=== PATIENT | female | born 1955 | race Caucasian/White ===

== ENCOUNTER → 2018-10-20 | Outpatient (CLI) | payer OTHER ==
--- NOTE | 2018-10-20 15:20 | RADIOLOGY REPORT (SQ) ---
EXAM DESCRIPTION: CHEST 2 VIEWS COMPLETED DATE/TIME: 10/20/2018 3:11 pm REASON FOR STUDY: ABNORMAL CBC COMPARISON: None. EXAM PARAMETERS: NUMBER OF VIEWS: two views TECHNIQUE: Digital Frontal and Lateral radiographic views of the chest acquired. RADIATION DOSE: NA LIMITATIONS: none FINDINGS: LUNGS AND PLEURA: No opacities, masses or pneumothorax. No pleural effusion. MEDIASTINUM AND HILAR STRUCTURES: No masses or contour abnormalities. HEART AND VASCULAR STRUCTURES: Heart normal size. No evidence for failure. BONES: No acute findings. HARDWARE: None in the chest. OTHER: No other significant finding. IMPRESSION: NO ACUTE RADIOGRAPHIC FINDING IN THE CHEST. TECHNICAL DOCUMENTATION: JOB ID: [id number] [employer] All Rights Reserved Reading location - IP/workstation name: [email or web address]
--- NOTE | 2018-10-20 20:57 | XCELERA REPORT ---
[address] [address] Transthoracic Echocardiogram Report Name: AFUA NUNEZ Age: 62 yrs Gender: Female : 1955 Patient Status: Outpatient Patient Location: RAD Study Date: 10/20/2018 04:17 PM Height: 65 in Weight: 173 lb BSA: 1.9 m2 Procedure: A complete two-dimensional transthoracic echocardiogram was performed (2D, M-mode, spectral and color flow Doppler). The study was technically adequate with some images being suboptimal in quality. Reason For Study: [facility] Ordering Physician: SHELLEY BLANCAS Performed By: Aleksandra Warren Interpretation Summary LV EF is 45% Left ventricular systolic function is mildly reduced. There is moderate concentric left ventricular hypertrophy. The left ventricle is grossly normal size. Doppler measurements suggest pseudonormalized left ventricular relaxation, which is associated with grade II/IV or mild to moderate diastolic dysfunction There is mild global hypokinesis of the left ventricle. There is lateral wall moderate hypokinesis The right ventricular systolic function is normal. The left atrium is moderately dilated. The right atrium is normal. There is a trace amount of mitral regurgitation There is no mitral valve stenosis. No aortic regurgitation is present. There is no aortic valve stenosis There is a trace or physiologic amount of tricuspid regurgitation Tricuspid regurgitation jet envelope not well defined to measure RV systolic pressure accurately. The aortic root is not well visualized but is probably normal size. The inferior vena cava appeared normal and decreased > 50% with respiration (RAP 5-10 mmHg) Minimal pericardial effusion. MMode/2D Measurements & Calculations IVSd: 1.2 cm LVIDd: 5.8 cm FS: 19.5 % Ao root diam: 3.0 cm LVIDs: 4.6 cm EDV(Teich): 163.7 ml Ao root area: 7.2 cm2 LVPWd: 1.4 cm ESV(Teich): 99.0 ml EF(Teich): 39.5 % Doppler Measurements & Calculations MV E max abbey: MV dec slope: Ao V2 max: LV V1 max P.6 cm/sec 258.8 cm/sec2 151.7 cm/sec 2.2 mmHg MV A max abbey: MV dec time: 0.25 sec Ao max P.2 mmHgLV V1 max: 116.3 cm/sec 73.5 cm/sec MV E/A: 0.56 PA V2 max: PI end-d abbey: TR max abbey: 87.0 cm/sec 95.1 cm/sec 210.2 cm/sec PA max P.0 mmHg TR max P.7 mmHg Left Ventricle The left ventricle is grossly normal size. There is moderate concentric left ventricular hypertrophy. Left ventricular systolic function is mildly reduced. LV EF is 45%. Doppler measurements suggest pseudonormalized left ventricular relaxation, which is associated with grade II/IV or mild to moderate diastolic dysfunction. There is mild global hypokinesis of the left ventricle. There is lateral wall moderate hypokinesis. Right Ventricle The right ventricle is grossly normal size. There is normal right ventricular wall thickness. The right ventricular systolic function is normal. Atria The right atrium is normal. The left atrium is moderately dilated. Interarterial septum not well visualized and not well dopplered. Cannot comment on ASD/PFO presence. Mitral Valve The mitral valve leaflets are sclerotic, but show no functional abnormalities. There is no mitral valve stenosis. There is a trace amount of mitral regurgitation. Aortic Valve The aortic valve is grossly normal. There is no aortic valve stenosis. No aortic regurgitation is present. Tricuspid Valve The tricuspid valve is not well visualized, but is grossly normal. There is no tricuspid stenosis. There is a trace or physiologic amount of tricuspid regurgitation. Tricuspid regurgitation jet envelope not well defined to measure RV systolic pressure accurately. Pulmonic Valve The pulmonic valve is not well visualized. Great Vessels The aortic root is not well visualized but is probably normal size. The inferior vena cava appeared normal and decreased > 50% with respiration (RAP 5-10 mmHg). Effusions Minimal pericardial effusion. : SHELLEY BLANCAS Shyamal
== END ==
LOC: RAD 14:48
PROVIDERS: ATTEND General Practice
DX: R79.9 Abnormal finding of blood chemistry, unspecified (principal)
CPT/HCPCS: 71046; 93306

== ENCOUNTER 2019-03-31 14:42 | Inpatient (IN) | payer OTHER ==
--- NOTE | 2019-03-31 15:19 | ER Document Report ---
ED Medical Screen (RME) - General Chief Complaint: Breathing Difficulty Stated Complaint: SHORTNESS OF BREATH Time Seen by Provider: 03/31/19 15:12 Primary Care Provider: SHELLEY BLANCAS MD [Primary Care Provider] - Follow up as needed Mode of Arrival: Ambulatory Information source: Patient Notes: 63-year-old female presents to ED for complaint of shortness of breath that is severely increased in the last week much worse over the last 2 days and then this morning she states it was so bad she could not even move around. She does have a history of COPD high blood pressure and cholesterol. She has had a heart cath in the left breast lump removed. According to she smokes 10 packs of cigarettes a week. She states she is cutting back and she thought she was under a pack but he states no she smokes a carton of cigarettes a week. She states she does not drink or do any drugs and she lives with her . Patient is severely short of breath her O2 sat is between 87 and 90 sometimes gets up to 92 she is very still. blood pressure is 280/108 manually. I have greeted and performed a rapid initial assessment of this patient. A comprehensive ED assessment and evaluation of the patient, analysis of test results and completion of medical decision making process will be conducted by an additional ED providers. Dictation of this chart was performed using voice recognition software; therefore, there may be some unintended grammatical errors. TRAVEL OUTSIDE OF THE [place] IN LAST 30 DAYS: No - Related Data Allergies/Adverse Reactions: codeine Allergy (Verified 03/31/19 14:51) Sulfa (Sulfonamide Antibiotics) Allergy (Verified 03/31/19 14:51) Physical Exam - Vital signs Vitals: Temp Pulse Resp BP Pulse Ox 98.3 F 68 24 H 257/114 H 92 03/31/19 15:01 03/31/19 15:01 03/31/19 15:01 03/31/19 15:01 03/31/19 15:01 Course - Vital Signs Vital signs: Temp Pulse Resp BP Pulse Ox 98.3 F 68 24 H 280/108 H 91 L 03/31/19 15:01 03/31/19 15:01 03/31/19 15:01 03/31/19 15:04 03/31/19 15:04 Doctor's Discharge - Discharge Referrals: SHELLEY BLANCAS MD [Primary Care Provider] - Follow up as needed
--- NOTE | 2019-03-31 15:49 | ER Document Report ---
ED General - General Chief Complaint: Breathing Difficulty Stated Complaint: SHORTNESS OF BREATH Time Seen by Provider: 03/31/19 15:12 Primary Care Provider: SHELLEY BLANCAS MD [Primary Care Provider] - Follow up as needed Mode of Arrival: Ambulatory Notes: Patient is a 63-year-old female with COPD that presents to the emergency department for chief complaint of shortness of breath and difficulty breathing. Patient states that over the past 4 to 5 days she has been feeling more short of breath, particularly for the past 3 days, she is been having orthopnea, and more difficulty breathing at night, she is had dyspnea on exertion as well. She states that she missed her blood pressure medications this morning, but has been taking them otherwise throughout the week. She does smoke cigarettes on a regular basis, but denies history of heart failure, she reports having a heart cath, that was negative, had no intervention at that time. She states she had an echocardiogram about 3 months ago which she thinks was normal. She denies having any chest pain, fevers, chills, night sweats, cough, nausea, vomiting or abdominal pain at this time. Past Medical History: COPD, hypertension Past Surgical History: Left heart catheterization, lumpectomy Social History: Admits to smoking cigarettes, denies alcohol or drug use. Family History: Reviewed and noncontributory for presenting illness Allergies: Reviewed, see documented allergy list. REVIEW OF SYSTEMS: Other than noted above, the 12 point review of systems was reviewed with the patient and were negative, all pertinent findings are included in the HPI. PHYSICAL EXAMINATION: Vital signs reviewed, nursing noted reviewed. GENERAL: Patient has mild increased work of breathing, but in no immediate distress at this time. HEAD: Atraumatic, normocephalic. EYES: Eyes appear normal, extraocular movements intact, sclera anicteric, conjunctiva are normal. ENT: nares patent, oropharynx clear without exudates. Moist mucous membranes. NECK: Normal range of motion, supple without lymphadenopathy LUNGS: Diffuse wheezing noted throughout all lung leone, and crackles noted at the bases bilaterally. Increased work of breathing. HEART: Regular rate and rhythm without murmurs ABDOMEN: Soft, nontender, normoactive bowel sounds. No rebound, guarding, or rigidity. No masses appreciated. EXTREMITIES: Nontender, good range of motion, 1+ pitting edema to the proximal tibias bilaterally. NEUROLOGICAL: No focal neurological deficits. Moves all extremities spontaneously Motor and sensory grossly intact on exam. PSYCH: Normal mood, normal affect. SKIN: Warm, Dry, normal turgor, no rashes or lesions noted on exposed skin TRAVEL OUTSIDE OF THE [place] IN LAST 30 DAYS: No - Related Data Allergies/Adverse Reactions: codeine Allergy (Verified 03/31/19 14:51) Sulfa (Sulfonamide Antibiotics) Allergy (Verified 03/31/19 14:51) Past Medical History - General Information source: Patient - Social History Smoking Status: Current Every Day Smoker Family History: Reviewed & Not Pertinent Patient has suicidal ideation: No Patient has homicidal ideation: No Renal/ Medical History: Denies: Hx Peritoneal Dialysis Physical Exam - Vital signs Vitals: Temp Pulse Resp BP Pulse Ox 98.3 F 68 24 H 257/114 H 92 03/31/19 15:01 03/31/19 15:01 03/31/19 15:01 03/31/19 15:01 03/31/19 15:01 Course - Re-evaluation Re-evalutation: Patient seen and examined vital signs reviewed. Laboratory data and imaging were ordered as appropriate for the patient's presenting symptoms and complaint, with consideration of any critical or life threatening conditions that may be associated with their obtained history and exam as noted above. Patient was treated with sublingual nitroglycerin, and started on nitro infusion, and Lasix 20 mg IV, patient additionally was given DuoNeb breathing treatments, IV Solu-Medrol, and IV magnesium. Results were reviewed when available and demonstrated elevated BNP, EKG was consistent with LVH, likely from long-standing hypertension, and also noted on chest x-ray, with bilateral pulmonary edema, and effusions. The patient was re-evaluated and was improved after breathing treatments, and blood pressure was starting to come down slowly after being started on nitroglycerin. Evaluation was most consistent with acute heart failure, pulmonary edema, and acute exacerbation of COPD Results were discussed with the patient at this point after careful considera tion I feel that that patient should be admitted to the hospital. This was discussed with the patient that it is in the best interest for their care to be admitted for further evaluation and management. Patient agreed with this plan of care. A call was placed to the admitting provider Javed Keene CNP who graciously accepted the patient onto their service. *Note is created using voice recognition software and may contain spelling, syntax or grammatical errors. Laboratory 03/31/19 03/31/19 03/31/19 15:27 15:27 15:27 WBC 10.6 H RBC 4.54 Hgb 13.0 Hct 39.4 MCV 87 MCH 28.6 MCHC 33.0 RDW 16.0 H Plt Count 272 Seg Neutrophils % 83.7 H Lymphocytes % 8.9 L Monocytes % 5.1 Eosinophils % 1.8 Basophils % 0.5 Absolute Neutrophils 8.8 H Absolute Lymphocytes 0.9 Absolute Monocytes 0.5 Absolute Eosinophils 0.2 Absolute Basophils 0.1 Sodium 138.0 Potassium 3.7 Chloride 99 Carbon Dioxide 30 Anion Gap 9 BUN 34 H Creatinine 1.94 H Est GFR ( Amer) 31 L Est GFR (Non-Af Amer) 26 L Glucose 101 Calcium 8.8 Total Bilirubin 0.6 Direct Bilirubin 0.4 Neonat Total Bilirubin Not Reportable Neonat Direct Bilirubin Not Reportable Neonat Indirect Bili Not Reportable AST 35 ALT 47 Alkaline Phosphatase 85 CK-MB (CK-2) Troponin I 0.022 NT-Pro-B Natriuret Pep Total Protein 7.4 Albumin 4.2 Lipase 64.0 03/31/19 15:27 WBC RBC Hgb Hct MCV MCH MCHC RDW Plt Count Seg Neutrophils % Lymphocytes % Monocytes % Eosinophils % Basophils % Absolute Neutrophils Absolute Lymphocytes Absolute Monocytes Absolute Eosinophils Absolute Basophils Sodium Potassium Chloride Carbon Dioxide Anion Gap BUN Creatinine Est GFR ( Amer) Est GFR (Non-Af Amer) Glucose Calcium Total Bilirubin Direct Bilirubin Neonat Total Bilirubin Neonat Direct Bilirubin Neonat Indirect Bili AST ALT Alkaline Phosphatase CK-MB (CK-2) 4.18 Troponin I NT-Pro-B Natriuret Pep 5150 H Total Protein Albumin Lipase Chest X-Ray 03/31/19 15:14 IMPRESSION: Increased interstitial prominence and bilateral pleural effusions. Small areas of basilar subsegmental atelectasis. - Vital Signs Vital signs: Temp Pulse Resp BP Pulse Ox 98.3 F 68 24 H 280/108 H 91 L 03/31/19 15:01 03/31/19 15:01 03/31/19 15:01 03/31/19 15:04 03/31/19 15:04 - Laboratory Result Diagrams: 03/31/19 15:27 03/31/19 15:27 Laboratory results interpreted by me: 03/31/19 03/31/19 03/31/19 15:27 15:27 15:27 WBC 10.6 H RDW 16.0 H Seg Neutrophils % 83.7 H Lymphocytes % 8.9 L Absolute Neutrophils 8.8 H BUN 34 H Creatinine 1.94 H Est GFR ( Amer) 31 L Est GFR (Non-Af Amer) 26 L NT-Pro-B Natriuret Pep 5150 H Critical Care Note - Critical Care Note Total time excluding time spent on procedures (mins): 36 Comments: Critical care time 36 minutes exclusive from separate billable procedures for a patient requiring complex medical decision making, and high potential for clinical deterioration. In a patient with acute heart failure, requiring IV nitroglycerin, and acute management and frequent re-evaluations. Time spent obtaining history from patient or surrogate, discussions with consultants, development of treatment plan with patient or surrogate, evaluation of patient's response to treatment, examination of patient, ordering and performing treatm ents and interventions, ordering and review of laboratory studies, re-evaluation of patient's condition, ordering and review of radiographic studies and review of old charts Discharge - Discharge Clinical Impression: Acute exacerbation of chronic obstructive pulmonary disease (COPD), Hypertensive emergency Acute CHF Qualifiers: Heart failure type: systolic Qualified Code(s): I50.21 - Acute systolic (congestive) heart failure Condition: Stable Disposition: ADMITTED INPATIENT Admitting Provider: Robyn (Hospitalist) - Javed Keene HEARING THERAPIST Unit Admitted: IMCU Referrals: SHELLEY BLANCAS MD [Primary Care Provider] - Follow up as needed
[2019-03-31] MEDS ORDERED: IPRATROPIUM/ALBUTEROL 0.5-2.5 MG/3 ML AMPUL NEB ONE (16:04)
[2019-03-31 16:05] LABS: ABSOLUTE BASOPHILS # (AUTO) 0.1 10^3/uL (0.0-0.2); ABSOLUTE EOSINOPHILS # (AUTO) 0.2 10^3/uL (0.0-0.6); ABSOLUTE LYMPHOCYTES (AUTO) 0.9 10^3/uL (0.5-4.7); ABSOLUTE MONOCYTES (AUTO) 0.5 10^3/uL (0.1-1.4); ABSOLUTE NEUT (AUTO) 8.8 10^3/uL (1.7-8.2); BASOPHILS % (AUTO) 0.5 % (0-2); EOSINOPHILS % (AUTO) 1.8 % (0-6); HEMATOCRIT 39.4 % (36.0-47.0); LYMPHOCYTES % (AUTO) 8.9 % (13-45); MEAN CORPUSCULAR HEMOGLOBIN 28.6 pg (27.0-33.4); MEAN CORPUSCULAR VOLUME 87 fl (80-97); MONOCYTES % (AUTO) 5.1 % (3-13); PLATELET COUNT 272 10^3/uL (150-450); RED BLOOD COUNT 4.54 10^6/uL (3.72-5.28); SEGMENTED NEUTROPHILS % (AUTO) 83.7 % (42-78); TOTAL CELLS COUNTED % (AUTO) 100 %; WHITE BLOOD COUNT 10.6 10^3/uL (4.0-10.5)
--- NOTE | 2019-03-31 16:20 | RADIOLOGY REPORT (SQ) ---
EXAM DESCRIPTION: CHEST 2 VIEWS COMPLETED DATE/TIME: 03/31/2019 4:09 pm REASON FOR STUDY: very short of breath sat ra 87 COMPARISON: 10/20/2018 TECHNIQUE: Single frontal radiographic view of the chest acquired. NUMBER OF VIEWS: One view. LIMITATIONS: None. FINDINGS: LUNGS AND PLEURA: No pneumothorax. Increased interstitial prominence and bilateral pleura l effusions. Small areas of basilar subsegmental atelectasis. MEDIASTINUM AND HILAR STRUCTURES: Stable. HEART AND VASCULAR STRUCTURES: Stable. BONES: No acute findings. HARDWARE: None in the chest. OTHER: No other significant finding. IMPRESSION: Increased interstitial prominence and bilateral pleural effusions. Small areas of basila r subsegmental atelectasis. TECHNICAL DOCUMENTATION: JOB ID: [id number] [place]-[id number] 2010 [employer]- All Rights Reserved Reading location - IP/workstation name: [email or web address]
[2019-03-31 16:28] LABS: ALBUMIN 4.2 g/dL (3.5-5.0); ALKALINE PHOSPHATASE 85 U/L (38-126); ANION GAP 9 (5-19); ASPARTATE AMINO TRANSFERASE 35 U/L (14-36); BILIRUBIN,DIRECT 0.4 mg/dL (0.0-0.4); BILIRUBIN,TOTAL 0.6 mg/dL (0.2-1.3); BLOOD UREA NITROGEN 34 mg/dL (7-20); CALCIUM 8.8 mg/dL (8.4-10.2); CARBON DIOXIDE 30 mmol/L (22-30); CHLORIDE 99 mmol/L (98-107); GLUCOSE 101 mg/dL (75-110); POTASSIUM 3.7 mmol/L (3.6-5.0); TOTAL PROTEIN 7.4 g/dL (6.3-8.2)
[2019-03-31] MEDS ORDERED: NITROGLYCERIN/D5W 50 MG/250 ML RTUINJ IV PRN (16:38)
[2019-03-31] MEDS ORDERED: NITROGLYCERIN 0.4 MG/TAB 25 TAB/BOTTLE SL STA (16:38)
[2019-03-31 16:43] LABS: CREATINE KINASE MB 4.18 ng/mL (<4.55)
[2019-03-31] MEDS ORDERED: FUROSEMIDE INJ/PF 20 MG/2 ML SDV IV ONE (16:47)
[2019-03-31] MEDS ORDERED: MAGNESIUM SULFATE/D5W 1 GM/100 ML RTUPB IV ONE (17:20)
[2019-03-31] MEDS ORDERED: METHYLPREDNISOLONE INJ 125 MG/2 ML SDV IV ONE (17:20)
[2019-03-31] MEDS ORDERED: FUROSEMIDE INJ/PF 40 MG/4 ML SDV IV ONE (17:35)
[2019-03-31] MEDS ORDERED: ONDANSETRON HCL INJ/PF 4 MG/2 ML SDV IV PRN (17:45)
[2019-03-31] MEDS ORDERED: OXYCODONE-ACETAMINOPHEN 5-325 MG TABLET PO PRN (17:45)
--- NOTE | 2019-03-31 17:45 | Progress Note Acknowledgement ---
Progress Note Acknowledgement Progess Note Acknowledgement: I, the undersigned member of the medical staff with appropriate privileges and with supervisory authority over [Javed Keene], a dependent practice allied health professional, acknowledge that I have reviewed the progress notes entered on this patient, and in my professional judgment believe that the assessment made and/or any care evidenced was appropriate
--- NOTE | 2019-03-31 17:49 | EKG REPORT ---
SEVERITY:- ABNORMAL ECG - SINUS RHYTHM ATRIAL PREMATURE COMPLEX LEFT ATRIAL ABNORMALITY LVH WITH SECONDARY REPOLARIZATION ABNORMALITY : Confirmed by: Juan C Sharp MD 31-Mar-2019 17:48:52
[2019-03-31] MEDS ORDERED: ALBUTEROL SULFATE 0.083% NEB 2.5 MG/3 ML AMPUL NEB PRN ×2 (17:51→19:00)
[2019-03-31] MEDS ORDERED: ALBUTEROL SULFATE 0.083% NEB 2.5 MG/3 ML AMPUL NEB SCH (18:00)
[2019-03-31] MEDS ORDERED: METOPROLOL SUCCINATE 25 MG TAB.SR.24H PO SCH (18:00)
--- NOTE | 2019-03-31 18:05 | PDOC H&P ---
History of Present Illness Admission Date/PCP: March 31, 2019 SHELLEY BLANCAS MD Patient complains of: Shortness of breath History of Present Illness: AFUA NUNEZ is a 63 year old female with a past medical history of right-sided systolic congestive heart failure with low ejection fraction most recently 45%. This ejection fraction was read off of echocardiogram from 3 months ago. Patient presented to the ER with acute exacerbation of chronic congestive heart failure with a BNP of 5500. Patient was given Lasix 20 g IV, nitroglycerin drip and 1 sublingual nitro per ER. Patient also showed up with a hypertensive crisis with a blood pressure systolic to 260 diastolic 120. Patient states she had echocardiogram 3 months ago although no one in her clinic could tell her what the results were as they could not read the echo results. She had no treatment prior to arrival all activities been aggravating factor. Past Medical History Cardiac Medical History: Reports: Congestive Heart Failure, Hypertension Pulmonary Medical History: Reports: Chronic Obstructive Pulmonary Disease (COPD) Past Surgical History Past Surgical History: Reports: None Social History Information Source: Patient Lives with: Family Smoking Status: Current Every Day Smoker Cigarettes Packs Per Day: 1 Frequency of Alcohol Use: None Hx Recreational Drug Use: No Drugs: None Hx Prescription Drug Abuse: No - Advance Directive Resuscitation Status: Full Code Family History Family History: CAD, DM, Hypertension Parental Family History Reviewed: Yes Children Family History Reviewed: Yes Sibling(s) Family History Reviewed.: Yes Medication/Allergy Allergies/Adverse Reactions: codeine Allergy (Verified 03/31/19 14:51) Sulfa (Sulfonamide Antibiotics) Allergy (Verified 03/31/19 14:51) Review of Systems Constitutional: ABSENT: chills, fever(s), headache(s), weight gain, weight loss Eyes: ABSENT: visual disturbances Ears: ABSENT: hearing changes Cardiovascular: PRESENT: dyspnea on exertion, orthropnea Respiratory: PRESENT: cough, other - Wheeze Gastrointestinal: ABSENT: abdominal pain, constipation, diarrhea, hematemesis, hematochezia, nausea, vomiting Genitourinary: ABSENT: dysuria, hematuria Integumentary: ABSENT: rash, wounds Neurological: ABSENT: abnormal gait, abnormal speech, confusion, dizziness, fo rani weakness, syncope Psychiatric: ABSENT: anxiety, depression, homidical ideation, suicidal ideation Endocrine: ABSENT: cold intolerance, heat intolerance, polydipsia, polyuria Hematologic/Lymphatic: ABSENT: easy bleeding, easy bruising Physical Exam Vital Signs: Temp Pulse Resp BP Pulse Ox 98.3 F 68 20 223/118 H 92 03/31/19 15:01 03/31/19 15:01 03/31/19 17:15 03/31/19 17:15 03/31/19 17:15 Intake & Output 03/30/19 03/31/19 04/01/19 06:59 06:59 06:59 Intake Total 2 Balance 2 Weight 83.4 kg General appearance: PRESENT: no acute distress, well-developed, well-nourished Head exam: PRESENT: atraumatic, normocephalic Eye exam: PRESENT: conjunctiva pink, EOMI, PERRLA. ABSENT: scleral icterus Ear exam: PRESENT: normal external ear exam Mouth exam: PRESENT: moist, tongue midline Neck exam: ABSENT: carotid bruit, JVD, lymphadenopathy, thyromegaly Respiratory exam: PRESENT: crackles, rales, unlabored, wheezes. ABSENT: rhonchi Cardiovascular exam: PRESENT: RRR. ABSENT: diastolic murmur, rubs, systolic mur mur Pulses: PRESENT: normal dorsalis pedis pul Vascular exam: PRESENT: normal capillary refill GI/Abdominal exam: PRESENT: normal bowel sounds, soft. ABSENT: distended, guarding, mass, organolmegaly, rebound, tenderness Rectal exam: PRESENT: deferred Extremities exam: PRESENT: full ROM. ABSENT: calf tenderness, clubbing, pedal edema Neurological exam: PRESENT: alert, awake, oriented to person, oriented to place, oriented to time, oriented to situation, CN II-XII grossly intact. ABSENT: motor sensory deficit Psychiatric exam: PRESENT: appropriate affect, normal mood. ABSENT: homicidal ideation, suicidal ideation Skin exam: PRESENT: dry, intact, warm. ABSENT: cyanosis, rash Results Laboratory Results: 03/31/19 15:27 03/31/19 15:27 03/31/19 03/31/19 15:27 15:27 WBC 10.6 H RBC 4.54 Hgb 13.0 Hct 39.4 MCV 87 MCH 28.6 MCHC 33.0 RDW 16.0 H Plt Count 272 Seg Neutrophils % 83.7 H Lymphocytes % 8.9 L Monocytes % 5.1 Eosinophils % 1.8 Basophils % 0.5 Absolute Neutrophils 8.8 H Absolute Lymphocytes 0.9 Absolute Monocytes 0.5 Absolute Eosinophils 0.2 Absolute Basophils 0.1 Sodium 138.0 Potassium 3.7 Chloride 99 Carbon Dioxide 30 Anion Gap 9 BUN 34 H Creatinine 1.94 H Est GFR ( Amer) 31 L Est GFR (Non-Af Amer) 26 L Glucose 101 Calcium 8.8 Total Bilirubin 0.6 AST 35 Alkaline Phosphatase 85 Total Protein 7.4 Albumin 4.2 Lipase 64.0 03/31/19 03/31/19 15:27 15:27 CK-MB (CK-2) 4.18 Troponin I 0.022 NT-Pro-B Natriuret Pep 5150 H Impressions: Chest X-Ray 03/31/19 15:14 IMPRESSION: Increased interstitial prominence and bilateral pleural effusions. Small areas of basilar subsegmental atelectasis. Assessment and Plan - Diagnosis (1) Hypertensive emergency Is this a current diagnosis for this admission?: Yes Plan: March 31, 2019-admit to ICU. Patient on nitroglycerin drip at this time was given a sublingual nitro in the ER. Blood pressure remains to 223 systolic. I have instructed ER nurse to give patient 0.2 mg of clonidine at this time we will also give patient morphine 2 mg to help with congestive heart failure additional blood pressure decline as well. I will continue to follow. (2) Acute on chronic systolic heart failure Is this a current diagnosis for this admission?: Yes Plan: March 31, 2019-patient had echocardiogram 3 months ago exhibiting a an ejection fraction of 45%. At this time patient has x-ray findings suggestive of acute episode of this chronic systolic heart failure. Placed night patient in ICU. Patient will get Lasix 40 g IV 3 times daily, patient is on nitroglycerin drip, I am given him 2 mg of morphine, I will start her on metoprolol XL 25 g p.o. twice daily, lisinopril 2.5 g p.o. daily, and give her Aldactone 25 mg p.o. daily. (3) Acute exacerbation of chronic obstructive pulmonary disease (COPD) Is this a current diagnosis for this admission?: Yes Plan: March 31, 2019-patient is exhibiting wheezing and a slight white count. Patient continues smoke 1 pack of cigarettes per day. At this time place patient Levaqu in 750 mg IV daily, DuoNeb every 12 hours and albuterol every 4 with albuterol 2 hours PRN, and Solu-Medrol 40 g IV 3 times daily. We will continue to follow. - Time Time Spent with patient: 35 or more minutes - Inpatient Certification Based on my medical assessment, after consideration of the patient's comorbidities, presenting symptoms, or acuity I expect that the services needed warrant INPATIENT care.: Yes I certify that my determination is in accordance with my understanding of Medicare's requirements for reasonable and necessary INPATIENT services [42 CFR 412.3e].: Yes Medical Necessity: Other - ICU, IV nitroglycerin,
--- NOTE | 2019-03-31 18:08 | ADVANCED CARE ---
- Diagnosis (1) Hypertensive emergency Diagnosis Current: Yes (2) Acute on chronic systolic heart failure Diagnosis Current: Yes (3) Acute exacerbation of chronic obstructive pulmonary disease (COPD) Diagnosis Current: Yes Attendance: Myself, patient and Resuscitation Status: Full Code Discussion: Discussed plan of care with patient and her . At this time place patient in ICU will treat acute on chronic systolic heart failure with IV Lasix, IV nitroglycerin, baby aspirin, lisinopril 2.5 g p.o. daily, metoprolol 25 g p.o. daily, Aldactone 25 mill grams p.o. daily. As for her acute on chronic exacerbation COPD placed on Levaquin 750 mg IV daily, Solu-Medrol 40 mg IV every 8 and duo nebs every 12 with albuterol every 4 and every 2 as needed, her hypertensive crisis will be treated with IV nitroglycerin and I have given her oral clonidine 0.2 mg. We will continue to follow Care Planning Goals: 1 improvement in congestive heart failure 2 improvement in COPD exacerbation 3-resolution of hypertensive crisis Time Spent: 20 minutes
[2019-03-31] MEDS ORDERED: LEVOFLOXACIN 750 MG/D5W RTU 750 MG/150 ML RTUPB IV ONE (18:30)
[2019-03-31] MEDS: IPRATROPIUM/ALBUTEROL 0.5-2.5 MG/3 ML AMPUL NEB SCH ×2 (19:06→20:10)
[2019-03-31] MEDS: ALBUTEROL SULFATE 0.083% NEB 2.5 MG/3 ML AMPUL NEB SCH (20:10)
[2019-03-31] MEDS: METHYLPREDNISOLONE INJ 40 MG/1 ML SDV IV SCH (20:17)
[2019-03-31] MEDS ORDERED: NICARDIPINE HCL RTU, ISO-OS 20 MG/200 ML RTUINJ IV ONE (20:21)
[2019-03-31] MEDS ORDERED: NICOTINE 21 MG/24 HR PATCH.TD24 ONE (20:22)
[2019-03-31] MEDS: NICOTINE 21 MG/24 HR PATCH.TD24 TD SCH (21:00)
[2019-03-31] MEDS: HEPARIN SOD (PORCINE) 5,000 UNIT/ML 1 ML VIAL SUBCUT SCH (22:06)
[2019-03-31] MEDS: ZOLPIDEM TARTRATE 5 MG TABLET PO PRN (22:06)
[2019-04-01] MEDS: NICARDIPINE HCL RTU, ISO-OS 20 MG/200 ML RTUINJ IV PRN ×2 (00:24→03:40)
[2019-04-01] MEDS: ALBUTEROL SULFATE 0.083% NEB 2.5 MG/3 ML AMPUL NEB SCH ×2 (00:53→04:46)
[2019-04-01] MEDS: METHYLPREDNISOLONE INJ 40 MG/1 ML SDV IV SCH ×4 (02:42→22:24)
[2019-04-01] MEDS: FUROSEMIDE INJ/PF 40 MG/4 ML SDV IV SCH ×4 (02:42→17:51)
[2019-04-01 04:22] LABS: HEMATOCRIT 38.8 % (36.0-47.0); HEMOGLOBIN 12.8 g/dL (12.0-15.5); MEAN CORPUSCULAR HEMOGLOBIN 28.6 pg (27.0-33.4); MEAN CORPUSCULAR VOLUME 87 fl (80-97); PLATELET COUNT 236 10^3/uL (150-450); RED BLOOD COUNT 4.47 10^6/uL (3.72-5.28); WHITE BLOOD COUNT 8.6 10^3/uL (4.0-10.5)
[2019-04-01 04:36] LABS: ANION GAP 10 (5-19); BLOOD UREA NITROGEN 35 mg/dL (7-20); CALCIUM 8.3 mg/dL (8.4-10.2); CARBON DIOXIDE 30 mmol/L (22-30); CHLORIDE 98 mmol/L (98-107); CHOLESTEROL 220.25 mg/dL (0-200); GLUCOSE 213 mg/dL (75-110); POTASSIUM 4.1 mmol/L (3.6-5.0); TRIGLYCERIDES 82 mg/dL (<150)
[2019-04-01 04:47] LABS: ABSOLUTE LYMPHOCYTES# (MANUAL) 0.3 10^3/uL (0.5-4.7); ABSOLUTE MONOCYTES # (MANUAL) 0.2 10^3/uL (0.1-1.4); ANISOCYTOSIS 1+; BAND NEUTROPHILS % (MANUAL) 1 % (3-5); BASOPHILS % (MANUAL) 0 % (0-2); DIRECT LDL 171 mg/dL (<100); EOSINOPHILS % (MANUAL) 0 % (0-6); LYMPHOCYTES % (MANUAL) 3 % (13-45); MONOCYTES % (MANUAL) 2 % (3-13); SEGMENTED NEUTROPHILS % (MAN) 94 % (42-78); TOTAL CELLS COUNTED 100
[2019-04-01 04:48] LABS: PLATELET COMMENT ADEQUATE
[2019-04-01 04:53] LABS: FREE T4 (FREE THYROXINE) 1.09 ng/dL (0.78-2.19)
[2019-04-01] MEDS ORDERED: METOPROLOL SUCCINATE 50 MG TAB.SR.24H PO ONE (05:00)
[2019-04-01 05:07] LABS: THYROID STIMULATING HORMONE 1.06 uIU/mL (0.47-4.68)
[2019-04-01] MEDS: HEPARIN SOD (PORCINE) 5,000 UNIT/ML 1 ML VIAL SUBCUT SCH ×3 (05:55→22:23)
--- NOTE | 2019-04-01 08:10 | EKG REPORT ---
SEVERITY:- ABNORMAL ECG - SINUS RHYTHM LEFT ATRIAL ABNORMALITY INCOMPLETE LEFT BUNDLE BRANCH BLOCK LVH WITH SECONDARY REPOLARIZATION ABNORMALITY : Confirmed by: Juan C Sharp MD 01-Apr-2019 08:09:38
[2019-04-01] MEDS ORDERED: DEXTROSE 50%-WATER 25 GM/50 ML DISP.SYRIN IV PRN ×2 (08:11)
[2019-04-01] MEDS ORDERED: GLUCAGON,HUMAN RECOMB 1 MG INJ IM PRN (08:11)
[2019-04-01] MEDS ORDERED: DEXTROSE 40% GEL 15 GM TUBE PO PRN ×2 (08:11)
--- NOTE | 2019-04-01 08:21 | PDOC PROGRESS REPORT ---
Subjective Progress Note for:: 04/01/19 Subjective:: No complaints this a.m. Reason For Visit: HYPERTENSIVE CRISIS, ACUTE ON CHRONIC SYSTOLIC Physical Exam Vital Signs: Temp Pulse Resp BP Pulse Ox 97.5 F 81 18 171/76 H 93 04/01/19 07:58 04/01/19 07:58 04/01/19 07:58 04/01/19 07:58 04/01/19 07:58 Intake & Output 03/31/19 04/01/19 04/02/19 06:59 06:59 06:59 Intake Total 794 Output Total 4050 Balance -3256 Weight 84.2 kg General appearance: PRESENT: no acute distress, well-developed, well-nourished Head exam: PRESENT: atraumatic, normocephalic Eye exam: PRESENT: conjunctiva pink, EOMI, PERRLA. ABSENT: scleral icterus Ear exam: PRESENT: normal external ear exam Mouth exam: PRESENT: moist, tongue midline Neck exam: ABSENT: carotid bruit, JVD, lymphadenopathy, thyromegaly Respiratory exam: PRESENT: crackles, decreased breath sounds, unlabored, wheezes. ABSENT: rales, rhonchi Cardiovascular exam: PRESENT: RRR. ABSENT: diastolic murmur, rubs, systolic murmur Pulses: PRESENT: normal dorsalis pedis pul Vascular exam: PRESENT: normal capillary refill GI/Abdominal exam: PRESENT: normal bowel sounds, soft. ABSENT: distended, guarding, mass, organolmegaly, rebound, tenderness Rectal exam: PRESENT: deferred Extremities exam: PRESENT: full ROM. ABSENT: calf tenderness, clubbing, pedal edema Neurological exam: PRESENT: alert, awake, oriented to person, oriented to place, oriented to time, oriented to situation, CN II-XII grossly intact. ABSENT: motor sensory deficit Psychiatric exam: PRESENT: appropriate affect, normal mood. ABSENT: homicidal ideation, suicidal ideation Skin exam: PRESENT: dry, intact, warm. ABSENT: cyanosis, rash Results Laboratory Results: 04/01/19 03:19 04/01/19 03:19 03/31/19 03/31/19 04/01/19 15:27 15:27 03:19 WBC 10.6 H 8.6 RBC 4.54 4.47 Hgb 13.0 12.8 Hct 39.4 38.8 MCV 87 87 MCH 28.6 28.6 MCHC 33.0 33.0 RDW 16.0 H 16.0 H Plt Count 272 236 Seg Neutrophils % 83.7 H Not Reportable Lymphocytes % 8.9 L Not Reportable Monocytes % 5.1 Not Reportable Eosinophils % 1.8 Not Reportable Basophils % 0.5 Not Reportable Absolute Neutrophils 8.8 H Not Reportable Absolute Lymphocytes 0.9 Not Reportable Absolute Monocytes 0.5 Not Reportable Absolute Eosinophils 0.2 Not Reportable Absolute Basophils 0.1 Not Reportable Sodium 138.0 Potassium 3.7 Chloride 99 Carbon Dioxide 30 Anion Gap 9 BUN 34 H Creatinine 1.94 H Est GFR ( Amer) 31 L Est GFR (Non-Af Amer) 26 L Glucose 101 Calcium 8.8 Magnesium Total Bilirubin 0.6 AST 35 Alkaline Phosphatase 85 Total Protein 7.4 Albumin 4.2 Triglycerides Cholesterol LDL Cholesterol Direct VLDL Cholesterol HDL Cholesterol Lipase 64.0 TSH Free T4 04/01/19 04/01/19 03:19 03:19 WBC RBC Hgb Hct MCV MCH MCHC RDW Plt Count Seg Neutrophils % Lymphocytes % Monocytes % Eosinophils % Basophils % Absolute Neutrophils Absolute Lymphocytes Absolute Monocytes Absolute Eosinophils Absolute Basophils Sodium 137.7 Potassium 4.1 Chloride 98 Carbon Dioxide 30 Anion Gap 10 BUN 35 H Creatinine 1.98 H Est GFR ( Amer) 31 L Est GFR (Non-Af Amer) 25 L Glucose 213 H Calcium 8.3 L Magnesium 2.2 Total Bilirubin AST Alkaline Phosphatase Total Protein Albumin Triglycerides 82 Cholesterol 220.25 H LDL Cholesterol Direct 171 H VLDL Cholesterol 16.0 HDL Cholesterol 49 Lipase TSH 1.06 Free T4 1.09 03/31/19 03/31/19 03/31/19 15:27 15:27 20:58 CK-MB (CK-2) 4.18 Troponin I 0.022 0.020 NT-Pro-B Natriuret Pep 5150 H 04/01/19 04/01/19 03:19 03:19 CK-MB (CK-2) Troponin I 0.012 NT-Pro-B Natriuret Pep 5640 H Impressions: Chest X-Ray 03/31/19 15:14 IMPRESSION: Increased interstitial prominence and bilateral pleural effusions. Small areas of basilar subsegmental atelectasis. Assessment and Plan - Diagnosis (1) Hypertensive emergency Is this a current diagnosis for this admission?: Yes Plan: March 31, 2019-admit to ICU. Patient on nitroglycerin drip at this time was given a sublingual nitro in the ER. Blood pressure remains to 223 systolic. I have instructed ER nurse to give patient 0.2 mg of clonidine at this time we will also give patient morphine 2 mg to help with congestive heart failure additional blood pressure decline as well. I will continue to follow. April 01, 2019-improved at this time. Patient off nitroglycerin drip. Will transfer to [facility] for further monitoring. We will continue oral medications home medications. (2) Acute on chronic systolic heart failure Is this a current diagnosis for this admission?: Yes Plan: March 31, 2019-patient had echocardiogram 3 months ago exhibiting a an ejection fraction of 45%. At this time patient has x-ray findings suggestive of acute episode of this chronic systolic heart failure. Placed night patient in ICU. Patient will get Lasix 40 g IV 3 times daily, patient is on nitroglycerin drip, I am given him 2 mg of morphine, I will start her on metoprolol XL 25 g p.o. twice daily, lisinopril 2.5 g p.o. daily, and give her Aldactone 25 mg p.o. daily. April 01, 2019-BNP slightly worse this morning. Continue Lasix, metoprolol, lisinopril, and Aldactone. Continue to monitor may change plan of care as a ppropriate. Consult Jose Alejandro discussed with Dr. Blount this morning. We will continue to follow if any other concerns arise I will consult him again (3) Acute exacerbation of chronic obstructive pulmonary disease (COPD) Is this a current diagnosis for this admission?: Yes Plan: March 31, 2019-patient is exhibiting wheezing and a slight white count. Patient continues smoke 1 pack of cigarettes per day. At this time place patient Levaquin 750 mg IV daily, DuoNeb every 12 hours and albuterol every 4 with albuterol 2 hours PRN, and Solu-Medrol 40 g IV 3 times daily. We will continue to follow. April 01, 2018-slightly improved this morning. Continued bronchodilators, Solu- Medrol, and Levaquin. (4) Dyslipidemia Is this a current diagnosis for this admission?: Yes (5) Acute renal failure Is this a current diagnosis for this admission?: Yes Plan: April 01, 2019-I believe this to be actually chronic renal failure with acute exacerbation although I do not have previous readings for her creatinine. At this time this failure is stable I will continue to follow with daily BMPs as I give patient Lasix for her congestive heart failure. (6) Hyperglycemia Is this a current diagnosis for this admission?: Yes Plan: April 01, 2019-A1c at this time. Continue sliding scale insulin before meals and at bedtime. - Time Time Spent with patient: 25-34 minutes - Inpatient Certification Based on my medical assessment, after consideration of the patient's comorbidities, presenting symptoms, or acuity I expect that the services needed warrant INPATIENT care.: Yes I certify that my determination is in accordance with my understanding of Medicare's requirements for reasonable and necessary INPATIENT services [42 CFR 412.3e].: Yes Medical Necessity: Other - IV Lasix, titration of blood pressure medications.
[2019-04-01] MEDS: NITROGLYCERIN/D5W 50 MG/250 ML RTUINJ IV PRN ×2 (08:50→20:12)
[2019-04-01] MEDS: IPRATROPIUM BROMIDE 0.02% NEB 0.5 MG/2.5 ML AMPUL NEB SCH ×2 (08:55→16:29)
[2019-04-01] MEDS: BUDESONIDE NEB 0.5 MG/2 ML AMPUL NEB SCH ×2 (08:55→20:49)
[2019-04-01] MEDS: LEVALBUTEROL HCL NEB 1.25 MG/3 ML AMPUL NEB SCH ×2 (08:55→16:29)
[2019-04-01] MEDS: METOPROLOL SUCCINATE 25 MG TAB.SR.24H PO SCH ×2 (09:30→22:21)
[2019-04-01] MEDS: LEVOFLOXACIN 750 MG/D5W RTU 750 MG/150 ML RTUPB IV SCH (09:31)
[2019-04-01] MEDS ORDERED: CLONIDINE HCL 0.2 MG TABLET ONE (09:39)
[2019-04-01] MEDS ORDERED: LOSARTAN POTASSIUM 50 MG TABLET PO SCH (10:00)
[2019-04-01] MEDS ORDERED: LISINOPRIL 5 MG TABLET PO SCH ×2 (10:00)
[2019-04-01] MEDS ORDERED: METOPROLOL SUCCINATE 50 MG TAB.SR.24H PO SCH (10:00)
[2019-04-01] MEDS ORDERED: SPIRONOLACTONE 25 MG TABLET PO SCH (10:00)
[2019-04-01] MEDS: INSULIN REG, HUMAN 100 UNIT/ML 3 ML VIAL (PYX) SUBCUT SCH ×3 (11:41→23:00)
[2019-04-01] MEDS ORDERED: CLONIDINE HCL 0.1 MG TABLET PO ONE (13:18)
[2019-04-01] MEDS ORDERED: LISINOPRIL 5 MG TABLET PO ONE (14:00)
[2019-04-01] MEDS: CLONIDINE HCL 0.1 MG TABLET PO SCH ×2 (14:20→22:20)
[2019-04-01] MEDS ORDERED: DOXAZOSIN MESYLATE 1 MG TABLET PO ONE (18:00)
[2019-04-01] MEDS: HYDRALAZINE HCL INJ/PF 20 MG/1 ML SDV IV PRN ×2 (18:54→23:42)
[2019-04-01 21:55] LABS: ANION GAP 13 (5-19); BLOOD UREA NITROGEN 43 mg/dL (7-20); CALCIUM 8.3 mg/dL (8.4-10.2); CARBON DIOXIDE 27 mmol/L (22-30); CHLORIDE 91 mmol/L (98-107); GLUCOSE 117 mg/dL (75-110); POTASSIUM 3.2 mmol/L (3.6-5.0)
[2019-04-01] MEDS: ATORVASTATIN CALCIUM 80 MG TABLET PO SCH (22:22)
[2019-04-01] MEDS: ZOLPIDEM TARTRATE 5 MG TABLET PO PRN (22:22)
[2019-04-01] MEDS: NICOTINE 21 MG/24 HR PATCH.TD24 TD SCH (22:22)
[2019-04-01] MEDS: POTASSIUM CHLORIDE 10 MEQ CAPSULE.ER PO SCH (23:00)
[2019-04-02] MEDS: IPRATROPIUM BROMIDE 0.02% NEB 0.5 MG/2.5 ML AMPUL NEB SCH ×3 (00:09→16:08)
[2019-04-02] MEDS: LEVALBUTEROL HCL NEB 1.25 MG/3 ML AMPUL NEB SCH ×3 (00:09→16:08)
[2019-04-02] MEDS: POTASSIUM CHLORIDE 10 MEQ CAPSULE.ER PO SCH (01:19)
[2019-04-02 04:13] LABS: ANION GAP 11 (5-19); BLOOD UREA NITROGEN 45 mg/dL (7-20); CALCIUM 8.2 mg/dL (8.4-10.2); CARBON DIOXIDE 29 mmol/L (22-30); CHLORIDE 92 mmol/L (98-107); GLUCOSE 158 mg/dL (75-110); POTASSIUM 3.6 mmol/L (3.6-5.0)
[2019-04-02] MEDS: HYDRALAZINE HCL INJ/PF 20 MG/1 ML SDV IV PRN ×2 (04:37→16:04)
[2019-04-02] MEDS ORDERED: DOXAZOSIN MESYLATE 2 MG TABLET PO ONE (06:43)
[2019-04-02] MEDS: CLONIDINE HCL 0.1 MG TABLET PO SCH (06:59)
[2019-04-02] MEDS: METHYLPREDNISOLONE INJ 40 MG/1 ML SDV IV SCH ×2 (06:59→13:30)
[2019-04-02] MEDS: HEPARIN SOD (PORCINE) 5,000 UNIT/ML 1 ML VIAL SUBCUT SCH ×3 (07:00→21:26)
--- NOTE | 2019-04-02 08:31 | PDOC PROGRESS REPORT ---
Subjective Progress Note for:: 04/02/19 Subjective:: No complaints this a.m. April 02, 2019-no complaints this a.m. Reason For Visit: HYPERTENSIVE CRISIS, ACUTE ON CHRONIC SYSTOLIC Physical Exam Vital Signs: Temp Pulse Resp BP Pulse Ox 97.7 F 73 16 156/72 H 93 04/02/19 08:00 04/02/19 08:00 04/02/19 08:00 04/02/19 08:00 04/02/19 08:00 Intake & Output 04/01/19 04/02/19 04/03/19 06:59 06:59 06:59 Intake Total 794 985 85 Output Total 4050 2400 0 Balance -6356 -1415 85 Weight 84.2 kg 85.5 kg General appearance: PRESENT: no acute distress, well-developed, well-nourished Head exam: PRESENT: atraumatic, normocephalic Eye exam: PRESENT: conjunctiva pink, EOMI, PERRLA. ABSENT: scleral icterus Ear exam: PRESENT: normal external ear exam Mouth exam: PRESENT: moist, tongue midline Neck exam: ABSENT: carotid bruit, JVD, lymphadenopathy, thyromegaly Respiratory exam: PRESENT: clear to auscultation kyung. ABSENT: rales, rhonchi, wheezes Cardiovascular exam: PRESENT: RRR. ABSENT: diastolic murmur, rubs, systolic murmur Pulses: PRESENT: normal dorsalis pedis pul Vascular exam: PRESENT: normal capillary refill GI/Abdominal exam: PRESENT: normal bowel sounds, soft. ABSENT: distended, guarding, mass, organolmegaly, rebound, tenderness Rectal exam: PRESENT: deferred Extremities exam: PRESENT: full ROM. ABSENT: calf tenderness, clubbing, pedal edema Neurological exam: PRESENT: alert, awake, oriented to person, oriented to place, oriented to time, oriented to situation, CN II-XII grossly intact. ABSENT: motor sensory deficit Psychiatric exam: PRESENT: appropriate affect, normal mood. ABSENT: homicidal ideation, suicidal ideation Skin exam: PRESENT: dry, intact, warm. ABSENT: cyanosis, rash Results Laboratory Results: 04/01/19 03:19 04/02/19 03:17 04/01/19 04/02/19 21:15 03:17 Sodium 131.0 L 132.0 L Potassium 3.2 L 3.6 Chloride 91 L 92 L Carbon Dioxide 27 29 Anion Gap 13 11 BUN 43 H 45 H Creatinine 2.18 H 2.20 H Est GFR ( Amer) 27 L 27 L Est GFR (Non-Af Amer) 23 L 22 L Glucose 117 H 158 H Calcium 8.3 L 8.2 L Magnesium 2.0 2.0 03/31/19 03/31/19 03/31/19 15:27 15:27 20:58 CK-MB (CK-2) 4.18 Troponin I 0.022 0.020 NT-Pro-B Natriuret Pep 5150 H 04/01/19 04/01/19 03:19 03:19 CK-MB (CK-2) Troponin I 0.012 NT-Pro-B Natriuret Pep 5640 H Impressions: Chest X-Ray 03/31/19 15:14 IMPRESSION: Increased interstitial prominence and bilateral pleural effusions. Small areas of basilar subsegmental atelectasis. Assessment and Plan - Diagnosis (1) Hypertensive emergency Is this a current diagnosis for this admission?: Yes Plan: March 31, 2019-admit to ICU. Patient on nitroglycerin drip at this time was given a sublingual nitro in the ER. Blood pressure remains to 223 systolic. I have instructed ER nurse to give patient 0.2 mg of clonidine at this time we will also give patient morphine 2 mg to help with congestive heart failure additional blood pressure decline as well. I will continue to follow. April 01, 2019-improved at this time. Patient off nitroglycerin drip. Will transfer to [facility] for further monitoring. We will continue oral medications home medications. April 02, [id number] this time wean patient off of nitroglycerin drip I have added back her home Cardura 8 mg p.o. daily. I may need to adjust her treatment as the Cardura may show that she may not need clonidine in addition. Will monitor may change Medicare as appropriate (2) Acute on chronic systolic heart failure Is this a current diagnosis for this admission?: Yes Plan: March 31, 2019-patient had echocardiogram 3 months ago exhibiting a an ejection fraction of 45%. At this time patient has x-ray findings suggestive of acute episode of this chronic systolic heart failure. Placed night patient in ICU. Patient will get Lasix 40 g IV 3 times daily, patient is on nitroglycerin drip, I am given him 2 mg of morphine, I will start her on metoprolol XL 25 g p.o. twice daily, lisinopril 2.5 g p.o. daily, and give her Aldactone 25 mg p.o. daily. April 01, 2019-BNP slightly worse this morning. Continue Lasix, metoprolol, lisinopril, and Aldactone. Continue to monitor may change plan of care as appropriate. Consult Jose Alejandro discussed with Dr. Blount this morning. We will continue to follow if any other concerns arise I will consult him again April 02, 2019-patient continues to improve. Continue Lasix, metoprolol, lisinopril. Patient not wanting to take Aldactone at this time. States she had problems with it before. I did find patient was taken calcium channel blockers outpatient I have DC'd these as she has a known systolic heart failure and added lisinopril and metoprolol. (3) Acute exacerbation of chronic obstructive pulmonary disease (COPD) Is this a current diagnosis for this admission?: Yes Plan: March 31, 2019-patient is exhibiting wheezing and a slight white count. Patient continues smoke 1 pack of cigarettes per day. At this time place patient Levaquin 750 mg IV daily, DuoNeb every 12 hours and albuterol every 4 with albuterol 2 hours PRN, and Solu-Medrol 40 g IV 3 times daily. We will continue to follow. April 01, 2019-slightly improved this morning. Continued bronchodilators, Solu- Medrol, and Levaquin. March 2019-continues to improve. Will DC CV IV Solu-Medrol placed patient on prednisone 60 mg p.o. daily (4) Dyslipidemia Is this a current diagnosis for this admission?: Yes (5) Acute renal failure Is this a current diagnosis for this admission?: Yes Plan: April 01, 2019-I believe this to be actually chronic renal failure with acute exacerbation although I do not have previous readings for her creatinine. At this time this failure is stable I will continue to follow with daily BMPs as I give patient Lasix for her congestive heart failure. April 02, 2019-most likely chronic in nature. Patient stable at this time will continue daily BMPs (6) Hyperglycemia Is this a current diagnosis for this admission?: Yes Plan: April 01, 2019-A1c at this time. Continue sliding scale insulin before meals and at bedtime. April 02, 2019-slightly elevated most likely secondary to IV steroids. IV steroids DC'd at this time will place patient on prednisone 60 mg p.o. daily continue to follow blood sugars. Patient's A1c 5.7 - Time Time Spent with patient: 15-24 minutes - Inpatient Certification Based on my medical assessment, after consideration of the patient's comorbidities, presenting symptoms, or acuity I expect that the services needed warrant INPATIENT care.: Yes I certify that my determination is in accordance with my understanding of Medicare's requirements for reasonable and necessary INPATIENT services [42 CFR 412.3e].: Yes Medical Necessity: Other - Titration of blood pressure medications, monitoring kidney function.
[2019-04-02] MEDS: BUDESONIDE NEB 0.5 MG/2 ML AMPUL NEB SCH ×2 (08:55→20:17)
[2019-04-02] MEDS: INSULIN REG, HUMAN 100 UNIT/ML 3 ML VIAL (PYX) SUBCUT SCH ×4 (09:19→22:01)
[2019-04-02] MEDS: DOXAZOSIN MESYLATE 4 MG TABLET PO SCH ×2 (09:22→21:24)
[2019-04-02] MEDS: LISINOPRIL 5 MG TABLET PO SCH (09:23)
[2019-04-02] MEDS: METOPROLOL SUCCINATE 25 MG TAB.SR.24H PO SCH ×2 (09:23→21:23)
[2019-04-02] MEDS: FUROSEMIDE INJ/PF 40 MG/4 ML SDV IV SCH ×3 (09:24→17:59)
[2019-04-02] MEDS: LEVOFLOXACIN 750 MG/D5W RTU 750 MG/150 ML RTUPB IV SCH (09:24)
[2019-04-02] MEDS: CLONIDINE HCL 0.2 MG TABLET PO SCH ×2 (13:27→21:24)
[2019-04-02] MEDS: NITROGLYCERIN/D5W 50 MG/250 ML RTUINJ IV PRN (13:52)
[2019-04-02] MEDS ORDERED: LISINOPRIL 5 MG TABLET PO ONE (14:37)
[2019-04-02] MEDS: SPIRONOLACTONE 25 MG TABLET PO SCH (16:04)
[2019-04-02] MEDS: LEVALBUTEROL HCL NEB 0.63 MG/3 ML AMPUL NEB PRN (20:17)
[2019-04-02] MEDS: ATORVASTATIN CALCIUM 80 MG TABLET PO SCH (21:24)
[2019-04-02] MEDS: ZOLPIDEM TARTRATE 5 MG TABLET PO PRN (21:31)
[2019-04-02] MEDS: NICOTINE 21 MG/24 HR PATCH.TD24 TD SCH (21:32)
[2019-04-03] MEDS: LEVALBUTEROL HCL NEB 1.25 MG/3 ML AMPUL NEB SCH ×3 (00:21→15:57)
[2019-04-03] MEDS: IPRATROPIUM BROMIDE 0.02% NEB 0.5 MG/2.5 ML AMPUL NEB SCH ×3 (00:21→15:58)
[2019-04-03 05:02] LABS: HEMATOCRIT 36.5 % (36.0-47.0); MEAN CORPUSCULAR HEMOGLOBIN 28.1 pg (27.0-33.4); MEAN CORPUSCULAR HGB CONC 32.8 g/dL (32.0-36.0); MEAN CORPUSCULAR VOLUME 86 fl (80-97); PLATELET COUNT 265 10^3/uL (150-450); RED BLOOD COUNT 4.27 10^6/uL (3.72-5.28); RED CELL DISTRIBUTION WIDTH 16.1 % (11.5-14.0); WHITE BLOOD COUNT 16.2 10^3/uL (4.0-10.5)
[2019-04-03 05:18] LABS: ANION GAP 10 (5-19); BLOOD UREA NITROGEN 57 mg/dL (7-20); CALCIUM 8.2 mg/dL (8.4-10.2); CARBON DIOXIDE 29 mmol/L (22-30); CHLORIDE 92 mmol/L (98-107); GLUCOSE 115 mg/dL (75-110); POTASSIUM 3.3 mmol/L (3.6-5.0)
[2019-04-03] MEDS: CLONIDINE HCL 0.2 MG TABLET PO SCH ×3 (05:57→21:56)
[2019-04-03] MEDS: HEPARIN SOD (PORCINE) 5,000 UNIT/ML 1 ML VIAL SUBCUT SCH ×3 (05:57→21:56)
[2019-04-03] MEDS ORDERED: DIAZEPAM INJ 10 MG/2 ML DISP.SYRIN IV PRN (06:26)
[2019-04-03] MEDS: HYDRALAZINE HCL INJ/PF 20 MG/1 ML SDV IV PRN ×2 (07:12→18:00)
[2019-04-03] MEDS ORDERED: POTASSIUM CHLORIDE 10 MEQ CAPSULE.ER PO ONE (08:13)
--- NOTE | 2019-04-03 08:26 | PDOC PROGRESS REPORT ---
Subjective Progress Note for:: 04/03/19 Subjective:: No complaints this a.m. April 02, 2019-no complaints this a.m. April 03, 2019-no complaints this a.m. per patient patient did have rough night. She apparently got something in her eye and "wigged out". Patient received Valium which had good effect Reason For Visit: HYPERTENSIVE CRISIS, ACUTE ON CHRONIC SYSTOLIC Physical Exam Vital Signs: Temp Pulse Resp BP Pulse Ox 97.3 F 57 L 18 129/63 H 95 04/03/19 07:59 04/03/19 07:59 04/03/19 07:59 04/03/19 07:59 04/03/19 07:59 Intake & Output 04/02/19 04/03/19 04/04/19 06:59 06:59 06:59 Intake Total 985 1371 Output Total 2400 3350 Balance -1414 -1978 Weight 85.5 kg 86.3 kg General appearance: PRESENT: no acute distress, well-developed, well-nourished Neck exam: ABSENT: carotid bruit, JVD, lymphadenopathy, thyromegaly Respiratory exam: PRESENT: clear to auscultation kyung. ABSENT: rales, rhonchi, wheezes Cardiovascular exam: PRESENT: RRR. ABSENT: diastolic murmur, rubs, systolic murmur Pulses: PRESENT: normal dorsalis pedis pul Vascular exam: PRESENT: normal capillary refill GI/Abdominal exam: PRESENT: normal bowel sounds, soft. ABSENT: distended, guarding, mass, organolmegaly, rebound, tenderness Rectal exam: PRESENT: deferred Extremities exam: PRESENT: full ROM. ABSENT: calf tenderness, clubbing, pedal edema Neurological exam: PRESENT: alert, awake, oriented to person, oriented to place, oriented to time, oriented to situation, CN II-XII grossly intact. ABSENT: motor sensory deficit Psychiatric exam: PRESENT: appropriate affect, normal mood. ABSENT: homicidal ideation, suicidal ideation Skin exam: PRESENT: dry, intact, warm. ABSENT: cyanosis, rash Results Laboratory Results: 04/03/19 04:27 04/03/19 04:27 04/03/19 04/03/19 04:27 04:27 WBC 16.2 H RBC 4.27 Hgb 12.0 Hct 36.5 MCV 86 MCH 28.1 MCHC 32.8 RDW 16.1 H Plt Count 265 Sodium 131.0 L Potassium 3.3 L Chloride 92 L Carbon Dioxide 29 Anion Gap 10 BUN 57 H Creatinine 2.52 H Est GFR ( Amer) 23 L Est GFR (Non-Af Amer) 19 L Glucose 115 H Calcium 8.2 L 03/31/19 03/31/19 03/31/19 15:27 15:27 20:58 CK-MB (CK-2) 4.18 Troponin I 0.022 0.020 NT-Pro-B Natriuret Pep 5150 H 04/01/19 04/01/19 03:19 03:19 CK-MB (CK-2) Troponin I 0.012 NT-Pro-B Natriuret Pep 5640 H Impressions: Chest X-Ray 03/31/19 15:14 IMPRESSION: Increased interstitial prominence and bilateral pleural effusions. Small areas of basilar subsegmental atelectasis. Assessment and Plan - Diagnosis (1) Hypertensive emergency Is this a current diagnosis for this admission?: Yes Plan: March 31, 2019-admit to ICU. Patient on nitroglycerin drip at this time was given a sublingual nitro in the ER. Blood pressure remains to 223 systolic. I have instructed ER nurse to give patient 0.2 mg of clonidine at this time we will also give patient morphine 2 mg to help with congestive heart failure additional blood pressure decline as well. I will continue to follow. April 01, 2019-improved at this time. Patient off nitroglycerin drip. Will transfer to [facility] for further monitoring. We will continue oral medications home medications. April 02, [id number] this time wean patient off of nitroglycerin drip I have added back her home Cardura 8 mg p.o. daily. I may need to adjust her treatment as the Cardura may show that she may not need clonidine in addition. Will monitor may change Medicare as appropriate April 03, 2019-continues to improve. Patient remains on nitroglycerin drip at 20 mics IV increased her metoprolol XL to 100 g p.o. twice daily today I will continue to follow make further adjustments as needed to keep her systolic above below 150 (2) Acute on chronic systolic heart failure Is this a current diagnosis for this admission?: Yes Plan: March 31, 2019-patient had echocardiogram 3 months ago exhibiting a an ejection fraction of 45%. At this time patient has x-ray findings suggestive of acute episode of this chronic systolic heart failure. Placed night patient in ICU. Patient will get Lasix 40 g IV 3 times daily, patient is on nitroglycerin drip, I am given him 2 mg of morphine, I will start her on metoprolol XL 25 g p.o. twice daily, lisinopril 2.5 g p.o. daily, and give her Aldactone 25 mg p.o. daily. April 01, 2019-BNP slightly worse this morning. Continue Lasix, metoprolol, lisinopril, and Aldactone. Continue to monitor may change plan of care as appropriate. Consult Jose Alejandro discussed with Dr. Blount this morning. We will continue to follow if any other concerns arise I will consult him again April 02, 2019-patient continues to improve. Continue Lasix, metoprolol, lisinopril. Patient not wanting to take Aldactone at this time. States she had problems with it before. I did find patient was taken calcium channel blockers outpatient I have DC'd these as she has a known systolic heart failure and added lisinopril and metoprolol. April 03, 2019-continues to improve. Patient has slight bump in creatinine at this time I will DC her IV Lasix I will put patient on Lasix 40 mg p.o. twice daily I will continue to watch her creatinine for any further elevations. (3) Acute exacerbation of chronic obstructive pulmonary disease (COPD) Is this a current diagnosis for this admission?: Yes Plan: March 31, 2019-patient is exhibiting wheezing and a slight white count. Patient continues smoke 1 pack of cigarettes per day. At this time place patient Levaquin 750 mg IV daily, DuoNeb every 12 hours and albuterol every 4 with albuterol 2 hours PRN, and Solu-Medrol 40 g IV 3 times daily. We will continue to follow. April 01, 2019-slightly improved this morning. Continued bronchodilators, Solu- Medrol, and Levaquin. March 2019-continues to improve. Will DC CV IV Solu-Medrol placed patient on prednisone 60 mg p.o. daily April 03, 2019-improved patient continues on p.o. prednisone (4) Dyslipidemia Is this a current diagnosis for this admission?: Yes (5) Acute renal failure Is this a current diagnosis for this admission?: Yes Plan: April 01, 2019-I believe this to be actually chronic renal failure with acute exacerbation although I do not have previous readings for her creatinine. At this time this failure is stable I will continue to follow with daily BMPs as I give patient Lasix for her congestive heart failure. April 02, 2019-most likely chronic in nature. Patient stable at this time will continue daily BMPs April 03, 2019-chronic. Slight elevation this a.m. most likely from IV Lasix I will DC IV Lasix and place patient on 40 mg p.o. twice daily (6) Hyperglycemia Is this a current diagnosis for this admission?: Yes Plan: April 01, 2019-A1c at this time. Continue sliding scale insulin before meals and at bedtime. April 02, 2019-slightly elevated most likely secondary to IV steroids. IV steroids DC'd at this time will place patient on prednisone 60 mg p.o. daily continue to follow blood sugars. Patient's A1c 5.7 April 03, 2019-stable - Time Time Spent with patient: 15-24 minutes - Inpatient Certification Based on my medical assessment, after consideration of the patient's comorbidities, presenting symptoms, or acuity I expect that the services needed warrant INPATIENT care.: Yes I certify that my determination is in accordance with my understanding of Medic are's requirements for reasonable and necessary INPATIENT services [42 CFR 412.3e].: Yes Medical Necessity: Other - IV nitroglycerin, titration of oral antihypertensives
[2019-04-03] MEDS: INSULIN REG, HUMAN 100 UNIT/ML 3 ML VIAL (PYX) SUBCUT SCH ×4 (08:36→22:59)
[2019-04-03] MEDS: BUDESONIDE NEB 0.5 MG/2 ML AMPUL NEB SCH ×2 (08:59→20:10)
[2019-04-03] MEDS: METOPROLOL SUCCINATE 50 MG TAB.SR.24H PO SCH ×2 (09:52→21:55)
[2019-04-03] MEDS: LISINOPRIL 10 MG TABLET PO SCH (09:53)
[2019-04-03] MEDS: DOXAZOSIN MESYLATE 4 MG TABLET PO SCH ×2 (09:53→21:55)
[2019-04-03] MEDS: FUROSEMIDE 40 MG TABLET PO SCH ×2 (09:53→18:00)
[2019-04-03] MEDS: PREDNISONE 20 MG TABLET PO SCH (09:54)
[2019-04-03] MEDS: LISINOPRIL 5 MG TABLET PO SCH (09:54)
[2019-04-03] MEDS: SPIRONOLACTONE 25 MG TABLET PO SCH (09:54)
[2019-04-03] MEDS ORDERED: CEFTRIAXONE 1 GM/D5W RTU 1 GM/50 ML RTUPB IV SCH (10:00)
[2019-04-03] MEDS ORDERED: CEFTRIAXONE SODIUM 1,000 MG in DEXTROSE 5%-WATER 50 ML IV SCH (11:00)
[2019-04-03] MEDS: TOBRAMYCIN SULFATE/DEXAMETH OPH SUSP 2.5 ML OD SCH ×4 (12:18→21:58)
[2019-04-03] MEDS: LEVOFLOXACIN 750 MG/D5W RTU 750 MG/150 ML RTUPB IV SCH (13:34)
[2019-04-03] MEDS: CEFUROXIME 500 MG TABLET PO SCH (15:42)
[2019-04-03] MEDS: LEVOFLOXACIN 750 MG TABLET PO SCH (15:43)
[2019-04-03] MEDS: LEVALBUTEROL HCL NEB 0.63 MG/3 ML AMPUL NEB PRN (20:10)
--- NOTE | 2019-04-03 20:16 | RADIOLOGY REPORT (SQ) ---
EXAM DESCRIPTION: CT ABDOMEN PELVIS WITHOUT IV CONTRAST COMPLETED DATE/TME: 04/03/2019 18:15 CLINICAL HISTORY: malignant hypertension COMPARISON: None Available TECHNIQUE: Contiguous axial images of the abdomen and pelvis were obtained followed by reconstruction images. This exam was performed according to our departmental dose-optimization program, which includes automated exposure control, adjustment of the mA and/or kV according to patient size and/or use of iterative reconstruction technique. FINDINGS: Mildly dilated proximal small bowel loops with mild mucosal thickening could be secondary to an infectious versus inflammatory process. There is no stranding of the adjacent fat. Recommend follow-up. Linear opacities within the lungs may represent scar versus subsegmental atelectasis. There is atherosclerosis. Calcifications within the spleen compatible with prior granulomatous disease. There is cardiomegaly. There is a small pericardial fluid collection. There are small/trace bilateral pleural fluid collections. Increased opacity at the right lower lung may represent atelectasis. There is a calcified pulmonary nodule within the left lung and calcifications within the liver also compatible prior granulomatous disease. There is scoliosis and degenerative changes of lumbar spine. There is enlargement of the left adrenal gland measuring approximately 3.4 x 1.9 cm, Hounsfield units of -3 compatible with an adrenal adenoma. There is 2.5 cm left renal cyst. There is a small hepatic cysts. The liver, spleen, pancreas and kidneys are otherwise within normal limits. There is no hydronephrosis or renal stones. The gallbladder is unremarkable by CT criteria. Aorta is of normal caliber and tapering. There is atherosclerosis. There is no free fluid in the abdomen or pelvis. There is no bowel obstruction. There is no stranding of the mesenteric fat to suggest an inflammatory response. The appendix is within normal limits. There is no pericecal inflammation. IMPRESSION: Mildly dilated proximal small bowel loops with mild mucosal thickening could be secondary to an infectious versus inflammatory process. Recommend follow-up.
[2019-04-03] MEDS: NICOTINE 21 MG/24 HR PATCH.TD24 TD SCH (21:55)
[2019-04-03] MEDS: CALCIUM CARBONATE 500 MG TAB.CHEW PO SCH (21:56)
[2019-04-03] MEDS: ATORVASTATIN CALCIUM 80 MG TABLET PO SCH (21:56)
[2019-04-04] MEDS: LEVALBUTEROL HCL NEB 1.25 MG/3 ML AMPUL NEB SCH ×4 (00:23→23:52)
[2019-04-04] MEDS: IPRATROPIUM BROMIDE 0.02% NEB 0.5 MG/2.5 ML AMPUL NEB SCH ×4 (00:23→23:52)
[2019-04-04] MEDS: HEPARIN SOD (PORCINE) 5,000 UNIT/ML 1 ML VIAL SUBCUT SCH ×3 (05:43→21:42)
[2019-04-04] MEDS: CLONIDINE HCL 0.2 MG TABLET PO SCH ×3 (05:43→21:41)
[2019-04-04 06:37] LABS: HEMATOCRIT 35.2 % (36.0-47.0); HEMOGLOBIN 11.9 g/dL (12.0-15.5); MEAN CORPUSCULAR HEMOGLOBIN 28.8 pg (27.0-33.4); MEAN CORPUSCULAR HGB CONC 33.7 g/dL (32.0-36.0); MEAN CORPUSCULAR VOLUME 86 fl (80-97); PLATELET COUNT 221 10^3/uL (150-450); RED BLOOD COUNT 4.12 10^6/uL (3.72-5.28); WHITE BLOOD COUNT 9.9 10^3/uL (4.0-10.5)
[2019-04-04 07:03] LABS: ANION GAP 9 (5-19); BLOOD UREA NITROGEN 57 mg/dL (7-20); CALCIUM 8.2 mg/dL (8.4-10.2); CARBON DIOXIDE 30 mmol/L (22-30); CHLORIDE 93 mmol/L (98-107); GLUCOSE 92 mg/dL (75-110); POTASSIUM 3.5 mmol/L (3.6-5.0)
[2019-04-04] MEDS: INSULIN REG, HUMAN 100 UNIT/ML 3 ML VIAL (PYX) SUBCUT SCH ×4 (07:56→21:34)
--- NOTE | 2019-04-04 08:16 | PDOC PROGRESS REPORT ---
Subjective Progress Note for:: 04/04/19 Subjective:: No complaints this a.m. April 02, 2019-no complaints this a.m. April 03, 2019-no complaints this a.m. per patient patient did have rough night. She apparently got something in her eye and "wigged out". Patient received Valium which had good effect April 04, 2019-no complaints at this time. Reason For Visit: HYPERTENSIVE CRISIS, ACUTE ON CHRONIC SYSTOLIC Physical Exam Vital Signs: Temp Pulse Resp BP Pulse Ox 98.0 F 44 L 22 H 151/82 H 96 04/04/19 07:22 04/04/19 07:22 04/04/19 07:22 04/04/19 07:22 04/04/19 07:22 Intake & Output 04/03/19 04/04/19 04/05/19 06:59 06:59 06:59 Intake Total 1371 1950 69 Output Total 3350 3675 Balance -1979 -1725 69 Weight 86.3 kg 85.8 kg General appearance: PRESENT: no acute distress, well-developed, well-nourished Head exam: PRESENT: atraumatic, normocephalic Eye exam: PRESENT: conjunctiva pink, EOMI, PERRLA. ABSENT: scleral icterus Ear exam: PRESENT: normal external ear exam Mouth exam: PRESENT: moist, tongue midline Neck exam: ABSENT: carotid bruit, JVD, lymphadenopathy, thyromegaly Respiratory exam: PRESENT: clear to auscultation ykung. ABSENT: rales, rhonchi, wheezes Cardiovascular exam: PRESENT: RRR. ABSENT: diastolic murmur, rubs, systolic murmur Pulses: PRESENT: normal dorsalis pedis pul Vascular exam: PRESENT: normal capillary refill GI/Abdominal exam: PRESENT: normal bowel sounds, soft. ABSENT: distended, guarding, mass, organolmegaly, rebound, tenderness Rectal exam: PRESENT: deferred Extremities exam: PRESENT: full ROM. ABSENT: calf tenderness, clubbing, pedal edema Neurological exam: PRESENT: alert, awake, oriented to person, oriented to place, oriented to time, oriented to situation, CN II-XII grossly intact. ABSENT: motor sensory deficit Psychiatric exam: PRESENT: appropriate affect, normal mood. ABSENT: homicidal ideation, suicidal ideation Skin exam: PRESENT: dry, intact, warm. ABSENT: cyanosis, rash Results Laboratory Results: 04/04/19 06:01 04/04/19 06:01 04/04/19 04/04/19 06:01 06:01 WBC 9.9 RBC 4.12 Hgb 11.9 L Hct 35.2 L MCV 86 MCH 28.8 MCHC 33.7 RDW 16.0 H Plt Count 221 Sodium 132.2 L Potassium 3.5 L Chloride 93 L Carbon Dioxide 30 Anion Gap 9 BUN 57 H Creatinine 2.96 H Est GFR ( Amer) 19 L Est GFR (Non-Af Amer) 16 L Glucose 92 Calcium 8.2 L 03/31/19 03/31/19 03/31/19 15:27 15:27 20:58 CK-MB (CK-2) 4.18 Troponin I 0.022 0.020 NT-Pro-B Natriuret Pep 5150 H 04/01/19 04/01/19 03:19 03:19 CK-MB (CK-2) Troponin I 0.012 NT-Pro-B Natriuret Pep 5640 H Impressions: Chest X-Ray 03/31/19 15:14 IMPRESSION: Increased interstitial prominence and bilateral pleural effusions. Small areas of basilar subsegmental atelectasis. Abdomen/Pelvis CT 04/03/19 18:15 IMPRESSION: Mildly dilated proximal small bowel loops with mild mucosal thickening could be secondary to an infectious versus inflammatory process. Recommend follow-up. Assessment and Plan - Diagnosis (1) Hypertensive emergency Is this a current diagnosis for this admission?: Yes Plan: March 31, 2019-admit to ICU. Patient on nitroglycerin drip at this time was given a sublingual nitro in the ER. Blood pressure remains to 223 systolic. I have instructed ER nurse to give patient 0.2 mg of clonidine at this time we will also give patient morphine 2 mg to help with congestive heart failure additional blood pressure decline as well. I will continue to follow. April 01, 2019-improved at this time. Patient off nitroglycerin drip. Will transfer to [facility] for further monitoring. We will continue oral medications home medications. April 02, [id number] this time wean patient off of nitroglycerin drip I have added back her home Cardura 8 mg p.o. daily. I may need to adjust her t reatment as the Cardura may show that she may not need clonidine in addition. Will monitor may change Medicare as appropriate April 03, 2019-continues to improve. Patient remains on nitroglycerin drip at 20 mics IV increased her metoprolol XL to 100 g p.o. twice daily today I will continue to follow make further adjustments as needed to keep her systolic above below 150 April 04, 2019-no signs of scleroderma. 24-hour urine for metanephrines and catecholamines is pending. CT of the adrenal glands if she showed no findings although after several days of caring for patient patient finally told me this morning that she had been seen by endocrinology about a year ago and diagnosed with primary hyperaldosteronism. We will refer patient back for endocrinology when she is discharged. (2) Acute on chronic systolic heart failure Is this a current diagnosis for this admission?: Yes Plan: March 31, 2019-patient had echocardiogram 3 months ago exhibiting a an ejection fraction of 45%. At this time patient has x-ray findings suggestive of acute episode of this chronic systolic heart failure. Placed night patient in ICU. Patient will get Lasix 40 g IV 3 times daily, patient is on nitroglycerin drip, I am given him 2 mg of morphine, I will start her on metoprolol XL 25 g p.o. twice daily, lisinopril 2.5 g p.o. daily, and give her Aldactone 25 mg p.o. daily. April 01, 2019-BNP slightly worse this morning. Continue Lasix, metoprolol, lisinopril, and Aldactone. Continue to monitor may change plan of care as ap propriate. Consult Jose Alejandro discussed with Dr. Blount this morning. We will continue to follow if any other concerns arise I will consult him again April 02, 2019-patient continues to improve. Continue Lasix, metoprolol, lisinopril. Patient not wanting to take Aldactone at this time. States she had problems with it before. I did find patient was taken calcium channel blockers outpatient I have DC'd these as she has a known systolic heart failure and added lisinopril and metoprolol. April 03, 2019-continues to improve. Patient has slight bump in creatinine at this time I will DC her IV Lasix I will put patient on Lasix 40 mg p.o. twice daily I will continue to watch her creatinine for any further elevations. April 04-markedly improved. Patient continues on p.o. Lasix (3) Acute exacerbation of chronic obstructive pulmonary disease (COPD) Is this a current diagnosis for this admission?: Yes Plan: March 31, 2019-patient is exhibiting wheezing and a slight white count. Patient continues smoke 1 pack of cigarettes per day. At this time place patient Levaquin 750 mg IV daily, DuoNeb every 12 hours and albuterol every 4 with albuterol 2 hours PRN, and Solu-Medrol 40 g IV 3 times daily. We will continue to follow. April 01, 2019-slightly improved this morning. Continued bronchodilators, Solu- Medrol, and Levaquin. March 2019-continues to improve. Will DC CV IV Solu-Medrol placed patient on prednisone 60 mg p.o. daily April 03, 2019-improved patient continues on p.o. prednisone March 2019-improved continue to follow (4) Dyslipidemia Is this a current diagnosis for this admission?: Yes (5) Acute renal failure Is this a current diagnosis for this admission?: Yes Plan: April 01, 2019-I believe this to be actually chronic renal failure with acute exacerbation although I do not have previous readings for her creatinine. At this time this failure is stable I will continue to follow with daily BMPs as I give patient Lasix for her congestive heart failure. April 02, 2019-most likely chronic in nature. Patient stable at this time will continue daily BMPs April 03, 2019-chronic. Slight elevation this a.m. most likely from IV Lasix I will DC IV Lasix and place patient on 40 mg p.o. twice daily April 04, 2019-stable continue to follow daily BMPs. Patient remains on Lasix 40 mg p.o. twice daily. (6) Hyperglycemia Is this a current diagnosis for this admission?: Yes Plan: April 01, 2019-A1c at this time. Continue sliding scale insulin before meals and at bedtime. April 02, 2019-slightly elevated most likely secondary to IV steroids. IV steroids DC'd at this time will place patient on prednisone 60 mg p.o. daily continue to follow blood sugars. Patient's A1c 5.7 April 03, 2019-stable April 04 1219-stable - Time Time Spent with patient: 15-24 minutes - Inpatient Certification Based on my medical assessment, after consideration of the patient's comorbidities, presenting symptoms, or acuity I expect that the services needed warrant INPATIENT care.: Yes I certify that my determination is in accordance with my understanding of Medicare's requirements for reasonable and necessary INPATIENT services [42 CFR 412.3e].: Yes Medical Necessity: Other - 24-hour urine, medication titration
[2019-04-04] MEDS: BUDESONIDE NEB 0.5 MG/2 ML AMPUL NEB SCH ×2 (08:17→20:15)
[2019-04-04] MEDS: PREDNISONE 20 MG TABLET PO SCH (09:20)
[2019-04-04] MEDS: DOXAZOSIN MESYLATE 4 MG TABLET PO SCH ×2 (09:20→21:41)
[2019-04-04] MEDS: CEFUROXIME 500 MG TABLET PO SCH (09:20)
[2019-04-04] MEDS: CALCIUM CARBONATE 500 MG TAB.CHEW PO SCH ×5 (09:20→21:43)
[2019-04-04] MEDS: FUROSEMIDE 40 MG TABLET PO SCH ×2 (09:21→17:08)
[2019-04-04] MEDS: TOBRAMYCIN SULFATE/DEXAMETH OPH SUSP 2.5 ML OD SCH ×4 (09:21→21:42)
[2019-04-04] MEDS: METOPROLOL SUCCINATE 50 MG TAB.SR.24H PO SCH ×2 (09:21→21:42)
[2019-04-04] MEDS: LISINOPRIL 5 MG TABLET PO SCH (09:21)
[2019-04-04] MEDS: SPIRONOLACTONE 25 MG TABLET PO SCH (09:21)
[2019-04-04] MEDS: LISINOPRIL 10 MG TABLET PO SCH (09:21)
[2019-04-04] MEDS: HYDRALAZINE HCL INJ/PF 20 MG/1 ML SDV IV PRN (16:44)
[2019-04-04] MEDS: ZOLPIDEM TARTRATE 5 MG TABLET PO PRN (21:41)
[2019-04-04] MEDS: ATORVASTATIN CALCIUM 80 MG TABLET PO SCH (21:41)
[2019-04-04] MEDS: NICOTINE 21 MG/24 HR PATCH.TD24 TD SCH (21:42)
[2019-04-04 22:13] LABS: URINE PROTEIN 17.2 mg/dL (<12)
[2019-04-04 22:43] LABS: 24 HOUR URINE PROTEIN RESULT 757 mg/day (42-225)
[2019-04-05] MEDS: HYDRALAZINE HCL INJ/PF 20 MG/1 ML SDV IV PRN ×3 (00:18→17:21)
[2019-04-05] MEDS: HEPARIN SOD (PORCINE) 5,000 UNIT/ML 1 ML VIAL SUBCUT SCH ×3 (05:21→22:30)
[2019-04-05] MEDS: CLONIDINE HCL 0.2 MG TABLET PO SCH ×3 (05:21→22:27)
[2019-04-05 06:21] LABS: HEMATOCRIT 36.2 % (36.0-47.0); HEMOGLOBIN 12.1 g/dL (12.0-15.5); MEAN CORPUSCULAR HEMOGLOBIN 28.4 pg (27.0-33.4); MEAN CORPUSCULAR HGB CONC 33.6 g/dL (32.0-36.0); MEAN CORPUSCULAR VOLUME 85 fl (80-97); PLATELET COUNT 227 10^3/uL (150-450); RED BLOOD COUNT 4.28 10^6/uL (3.72-5.28); RED CELL DISTRIBUTION WIDTH 16.1 % (11.5-14.0); WHITE BLOOD COUNT 8.8 10^3/uL (4.0-10.5)
[2019-04-05 06:44] LABS: ANION GAP 7 (5-19); BLOOD UREA NITROGEN 57 mg/dL (7-20); CALCIUM 8.3 mg/dL (8.4-10.2); CARBON DIOXIDE 33 mmol/L (22-30); CHLORIDE 94 mmol/L (98-107); GLUCOSE 106 mg/dL (75-110); POTASSIUM 3.4 mmol/L (3.6-5.0)
[2019-04-05] MEDS: IPRATROPIUM BROMIDE 0.02% NEB 0.5 MG/2.5 ML AMPUL NEB SCH ×2 (08:57→16:15)
[2019-04-05] MEDS: LEVALBUTEROL HCL NEB 1.25 MG/3 ML AMPUL NEB SCH ×2 (08:57→16:15)
[2019-04-05] MEDS: BUDESONIDE NEB 0.5 MG/2 ML AMPUL NEB SCH ×2 (08:57→20:16)
[2019-04-05] MEDS: INSULIN REG, HUMAN 100 UNIT/ML 3 ML VIAL (PYX) SUBCUT SCH ×4 (09:22→22:30)
[2019-04-05] MEDS: LISINOPRIL 5 MG TABLET PO SCH (09:27)
[2019-04-05] MEDS: LEVOFLOXACIN 750 MG TABLET PO SCH (09:28)
[2019-04-05] MEDS: DOXAZOSIN MESYLATE 4 MG TABLET PO SCH ×2 (09:28→22:27)
[2019-04-05] MEDS: CALCIUM CARBONATE 500 MG TAB.CHEW PO SCH ×4 (09:28→22:26)
[2019-04-05] MEDS: METOPROLOL SUCCINATE 50 MG TAB.SR.24H PO SCH ×2 (09:29→22:31)
[2019-04-05] MEDS: FUROSEMIDE 40 MG TABLET PO SCH ×2 (09:29→17:20)
[2019-04-05] MEDS: LISINOPRIL 10 MG TABLET PO SCH (09:29)
[2019-04-05] MEDS: PREDNISONE 20 MG TABLET PO SCH (09:29)
[2019-04-05] MEDS: SPIRONOLACTONE 25 MG TABLET PO SCH (09:30)
[2019-04-05] MEDS: CEFUROXIME 500 MG TABLET PO SCH (09:30)
[2019-04-05] MEDS: TOBRAMYCIN SULFATE/DEXAMETH OPH SUSP 2.5 ML OD SCH ×4 (09:31→22:31)
[2019-04-05] MEDS ORDERED: NORMAL SALINE 1000 ML 1,000 ML IV PRN (10:29)
[2019-04-05] MEDS: NYSTATIN/DEXAMETH/DIPHEN SUSP 120 ML PO SCH ×3 (13:09→17:21)
--- NOTE | 2019-04-05 15:42 | PDOC PROGRESS REPORT ---
Subjective Progress Note for:: 04/05/19 Subjective:: This is 63 years old female patient with past medical history of congestive heart failure, hypertension, COPD and current everyday smoker presented with chief complaint of shortness of breath. Patient patient found to have hypertensive emergency with blood pressure of 260/120. And her BNP is 5500. Patient has been managed with Lasix, supplemental oxygen and bronchodilators. Patient also found to have acute kidney injury with creatinine of 1.94. Her kidney function is worsening with the aggressive diuresis. Her latest creatinine is 2.54. This morning patient seen while sitting up in bed she is awake alert oriented she is not in any distress but she complains of sore throats. For which she was given Magic mouth wash. Reason For Visit: HYPERTENSIVE CRISIS, ACUTE ON CHRONIC SYSTOLIC Physical Exam Vital Signs: Temp Pulse Resp BP Pulse Ox 98.0 F 60 16 150/68 H 96 04/05/19 11:28 04/05/19 14:00 04/05/19 11:28 04/05/19 11:28 04/05/19 11:28 Intake & Output 04/04/19 04/05/19 04/06/19 06:59 06:59 06:59 Intake Total 1950 789 Output Total 3675 4900 Balance -1725 -4111 Weight 85.8 kg 84.4 kg General appearance: PRESENT: mild distress Head exam: PRESENT: atraumatic Teeth exam: PRESENT: poor dentation Neck exam: ABSENT: carotid bruit, JVD, lymphadenopathy, thyromegaly Respiratory exam: PRESENT: wheezes Cardiovascular exam: PRESENT: RRR. ABSENT: diastolic murmur, rubs, systolic murmur GI/Abdominal exam: PRESENT: normal bowel sounds, soft. ABSENT: distended, guarding, mass, organolmegaly, rebound, tenderness Neurological exam: PRESENT: alert, awake, oriented to person, oriented to place, oriented to time, oriented to situation Results Laboratory Results: 04/05/19 05:45 04/05/19 05:45 04/04/19 04/05/19 04/05/19 21:27 05:45 05:45 WBC 8.8 RBC 4.28 Hgb 12.1 Hct 36.2 MCV 85 MCH 28.4 MCHC 33.6 RDW 16.1 H Plt Count 227 Sodium 134.0 L Potassium 3.4 L Chloride 94 L Carbon Dioxide 33 H Anion Gap 7 BUN 57 H Creatinine 2.54 H Est GFR ( Amer) 23 L Est GFR (Non-Af Amer) 19 L Glucose 106 Calcium 8.3 L Ur 24 Hour Volume 4400 Ur Total Protein 24 Hr 757 H 03/31/19 03/31/19 03/31/19 15:27 15:27 20:58 CK-MB (CK-2) 4.18 Troponin I 0.022 0.020 NT-Pro-B Natriuret Pep 5150 H 04/01/19 04/01/19 03:19 03:19 CK-MB (CK-2) Troponin I 0.012 NT-Pro-B Natriuret Pep 5640 H Impressions: Chest X-Ray 03/31/19 15:14 IMPRESSION: Increased interstitial prominence and bilateral pleural effusions. Small areas of basilar subsegmental atelectasis. Abdomen/Pelvis CT 04/03/19 18:15 IMPRESSION: Mildly dilated proximal small bowel loops with mild mucosal thickening could be secondary to an infectious versus inflammatory process. Recommend follow-up. Assessment and Plan - Diagnosis (1) Acute on chronic systolic congestive heart failure, NYHA class 2 Is this a current diagnosis for this admission?: Yes Plan: Lasix is tapered and switched to p.o. (2) Acute kidney injury Is this a current diagnosis for this admission?: Yes Plan: Her creatinine is slightly trending down. Patient started on maintenance fluids 75 mL/h. And will check her BMP in a.m. (3) COPD exacerbation Is this a current diagnosis for this admission?: Yes Plan: Continue current regimen (4) Tobacco dependence Is this a current diagnosis for this admission?: Yes Plan: Patient counseled and encouraged to quit smoking and she has been started on nicotine patch.
[2019-04-05] MEDS: NICOTINE 21 MG/24 HR PATCH.TD24 TD SCH (22:25)
[2019-04-05] MEDS: ATORVASTATIN CALCIUM 80 MG TABLET PO SCH (22:31)
[2019-04-05] MEDS: ZOLPIDEM TARTRATE 5 MG TABLET PO PRN (22:35)
[2019-04-06] MEDS: IPRATROPIUM BROMIDE 0.02% NEB 0.5 MG/2.5 ML AMPUL NEB SCH ×4 (00:06→23:50)
[2019-04-06] MEDS: LEVALBUTEROL HCL NEB 1.25 MG/3 ML AMPUL NEB SCH ×4 (00:06→23:50)
[2019-04-06 05:20] LABS: ANION GAP 7 (5-19); BLOOD UREA NITROGEN 50 mg/dL (7-20); CALCIUM 8.6 mg/dL (8.4-10.2); CARBON DIOXIDE 33 mmol/L (22-30); CHLORIDE 95 mmol/L (98-107); GLUCOSE 106 mg/dL (75-110); POTASSIUM 3.6 mmol/L (3.6-5.0)
[2019-04-06] MEDS: CLONIDINE HCL 0.2 MG TABLET PO SCH ×3 (05:44→22:19)
[2019-04-06] MEDS: HEPARIN SOD (PORCINE) 5,000 UNIT/ML 1 ML VIAL SUBCUT SCH ×3 (05:44→22:21)
[2019-04-06 07:12] LABS: URINE CREATININE 25.8 mg/dL (15-278)
[2019-04-06] MEDS: BUDESONIDE NEB 0.5 MG/2 ML AMPUL NEB SCH ×2 (07:49→20:19)
[2019-04-06] MEDS: INSULIN REG, HUMAN 100 UNIT/ML 3 ML VIAL (PYX) SUBCUT SCH ×4 (08:41→22:20)
[2019-04-06] MEDS: CALCIUM CARBONATE 500 MG TAB.CHEW PO SCH ×4 (09:18→22:19)
[2019-04-06] MEDS: DOXAZOSIN MESYLATE 4 MG TABLET PO SCH ×2 (09:19→22:15)
[2019-04-06] MEDS: FUROSEMIDE 40 MG TABLET PO SCH (09:19)
[2019-04-06] MEDS: LISINOPRIL 10 MG TABLET PO SCH (09:19)
[2019-04-06] MEDS: CEFUROXIME 500 MG TABLET PO SCH (09:20)
[2019-04-06] MEDS: METOPROLOL SUCCINATE 50 MG TAB.SR.24H PO SCH ×2 (09:20→22:19)
[2019-04-06] MEDS: NYSTATIN/DEXAMETH/DIPHEN SUSP 120 ML PO SCH ×3 (09:21→17:28)
[2019-04-06] MEDS: SPIRONOLACTONE 25 MG TABLET PO SCH (09:21)
[2019-04-06] MEDS: PREDNISONE 20 MG TABLET PO SCH (09:21)
--- NOTE | 2019-04-06 12:43 | PDOC PROGRESS REPORT ---
Subjective Progress Note for:: 04/06/19 Subjective:: This is 63 years old female patient with past medical history of congestive heart failure, hypertension, COPD and current everyday smoker presented with chief complaint of shortness of breath. Patient patient found to have hypertensive emergency with blood pressure of 260/120. And her BNP is 5500. Patient has been managed with Lasix, supplemental oxygen and bronchodilators. Patient also found to have acute kidney injury with creatinine of 1.94. Her kidney function is worsening with the aggressive diuresis. Her latest creatinine is 2.54. This morning patient seen while sitting up in bed she is awake alert oriented she is not in any distress but she complains of sore throats. For which she was given Magic mouth wash. 04/06/2019: Patient seen while she is sitting up in bed. She is awake alert oriented. She is not in pain or distress. Her kidney function is improving evidenced by her creatinine yesterday was 2.542 date is 2.34. I increase the flow of her normal saline from 75 to 125 mL/h and repeat her BMP in a if there is further improvement in her renal function patient's potential discharge tomorrow. Reason For Visit: HYPERTENSIVE CRISIS, ACUTE ON CHRONIC SYSTOLIC Physical Exam Vital Signs: Temp Pulse Resp BP Pulse Ox 97.6 F 55 L 18 172/82 H 100 04/06/19 07:52 04/06/19 07:52 04/06/19 07:52 04/06/19 07:52 04/06/19 07:52 Intake & Output 04/05/19 04/06/19 04/07/19 06:59 06:59 06:59 Intake Total 789 1389 Output Total 4900 3800 Balance -4111 -2633 Weight 84.4 kg 83.2 kg General appearance: PRESENT: no acute distress Head exam: PRESENT: atraumatic Mouth exam: PRESENT: moist Neck exam: ABSENT: carotid bruit, JVD, lymphadenopathy, thyromegaly Respiratory exam: PRESENT: wheezes. ABSENT: rales, rhonchi Cardiovascular exam: PRESENT: RRR. ABSENT: diastolic murmur, rubs, systolic murmur GI/Abdominal exam: PRESENT: normal bowel sounds, soft. ABSENT: distended, guarding, mass, organolmegaly, rebound, tenderness Neurological exam: PRESENT: alert, awake, oriented to person, oriented to place, oriented to time, oriented to situation Results Laboratory Results: 04/05/19 05:45 04/06/19 04:19 04/04/19 04/06/19 04/07/19 21:27 04:19 07:00 Sodium 134.8 L Potassium 3.6 Chloride 95 L Carbon Dioxide 33 H Anion Gap 7 BUN 50 H Creatinine 2.34 H Est GFR ( Amer) 25 L Est GFR (Non-Af Amer) 21 L Glucose 106 Calcium 8.6 Ur 24 Hour Volume 4400 Ur Epinephrine 24 Hr Cancelled U Norepinephrine 24 Hr Cancelled Ur Dopamine 24 Hr Cancelled 03/31/19 03/31/19 03/31/19 15:27 15:27 20:58 CK-MB (CK-2) 4.18 Troponin I 0.022 0.020 NT-Pro-B Natriuret Pep 5150 H 04/01/19 04/01/19 03:19 03:19 CK-MB (CK-2) Troponin I 0.012 NT-Pro-B Natriuret Pep 5640 H Impressions: Chest X-Ray 03/31/19 15:14 IMPRESSION: Increased interstitial prominence and bilateral pleural effusions. Small areas of basilar subsegmental atelectasis. Abdomen/Pelvis CT 04/03/19 18:15 IMPRESSION: Mildly dilated proximal small bowel loops with mild mucosal thickening could be secondary to an infectious versus inflammatory process. Recommend follow-up. Assessment and Plan - Diagnosis (1) Acute on chronic systolic congestive heart failure, NYHA class 2 Is this a current diagnosis for this admission?: Yes Plan: Lasix is tapered and switched to p.o. (2) Acute kidney injury Is this a current diagnosis for this admission?: Yes Plan: Creatinine is trending down. (3) COPD exacerbation Is this a current diagnosis for this admission?: Yes Plan: Continue current regimen (4) Tobacco dependence Is this a current diagnosis for this admission?: Yes Plan: Patient counseled and encouraged to quit smoking and she has been started on nicotine patch.
[2019-04-06] MEDS: NORMAL SALINE 1000 ML 1,000 ML IV PRN (20:00)
[2019-04-06] MEDS: ZOLPIDEM TARTRATE 5 MG TABLET PO PRN (22:18)
[2019-04-06] MEDS: ATORVASTATIN CALCIUM 80 MG TABLET PO SCH (22:18)
[2019-04-06] MEDS: NICOTINE 21 MG/24 HR PATCH.TD24 TD SCH (22:19)
[2019-04-07] MEDS: NORMAL SALINE 1000 ML 1,000 ML IV PRN (04:00)
[2019-04-07] MEDS: HEPARIN SOD (PORCINE) 5,000 UNIT/ML 1 ML VIAL SUBCUT SCH (05:32)
[2019-04-07] MEDS: CLONIDINE HCL 0.2 MG TABLET PO SCH (05:32)
[2019-04-07 06:49] LABS: ANION GAP 8 (5-19); BLOOD UREA NITROGEN 44 mg/dL (7-20); CALCIUM 8.2 mg/dL (8.4-10.2); CARBON DIOXIDE 31 mmol/L (22-30); CHLORIDE 97 mmol/L (98-107); GLUCOSE 105 mg/dL (75-110); POTASSIUM 3.8 mmol/L (3.6-5.0)
[2019-04-07] MEDS: BUDESONIDE NEB 0.5 MG/2 ML AMPUL NEB SCH (08:10)
[2019-04-07] MEDS: LEVALBUTEROL HCL NEB 1.25 MG/3 ML AMPUL NEB SCH (08:10)
[2019-04-07] MEDS: IPRATROPIUM BROMIDE 0.02% NEB 0.5 MG/2.5 ML AMPUL NEB SCH (08:10)
[2019-04-07] MEDS: INSULIN REG, HUMAN 100 UNIT/ML 3 ML VIAL (PYX) SUBCUT SCH (08:20)
--- NOTE | 2019-04-07 08:31 | PDOC DISCHARGE SUMMARY ---
General - Admit/Disc Date/PCP Admission Date/Primary Care Provider: 03/31/19 17:49 SHELLEY BLANCAS MD Discharge Date: 04/07/19 - Discharge Diagnosis (1) Acute on chronic systolic congestive heart failure, NYHA class 2 Is this a current diagnosis for this admission?: Yes (2) Acute kidney injury Is this a current diagnosis for this admission?: Yes (3) COPD exacerbation Is this a current diagnosis for this admission?: Yes (4) Tobacco dependence Is this a current diagnosis for this admission?: Yes - Additional Information Resuscitation Status: Full Code Discharge Diet: Cardiac Discharge Activity: Activity As Tolerated, Balance Activity w/Rest, Weigh Daily Home Medications: Albuterol Sulfate [Albuterol Sulfate Hfa] 1 puff IH Q6HP PRN 03/31/19 Cholecalciferol (Vitamin D3) [Vitamin D3 1000 Unit Tablet] 1,000 unit PO DAILY 03/31/19 Doxazosin Mesylate [Cardura] 8 mg PO Q12 03/31/19 Fluoxetine HCl [Prozac] 40 mg PO DAILY 03/31/19 Fluticasone/Salmeterol [Advair 250-50 Diskus 14 Dose/Diskus] 1 inh IH Q12 03/31/19 Guaifenesin [Robitussin Syrup 200 mg/10 ml Ud Cup] 200 mg PO HSP PRN 03/31/19 Metoprolol Succinate [Toprol Xl 50 mg Tab.sr] 100 mg PO DAILY 03/31/19 Verapamil HCl [Verapamil ER] 240 mg PO DAILY 03/31/19 History of Present Illness History of Present Illness: AFUA NUNEZ is a 63 year old female with a past medical history of right-sided systolic congestive heart failure with low ejection fraction most recently 45%. This ejection fraction was read off of echocardiogram from 3 months ago. Patient presented to the ER with acute exacerbation of chronic congestive heart failure with a BNP of 5500. Patient was given Lasix 20 g IV, nitroglycerin drip and 1 sublingual nitro per ER. Patient also showed up with a hypertensive crisis with a blood pressure systolic to 260 diastolic 120. Patient states she had echocardiogram 3 months ago although no one in her clinic could tell her what the results were as they could not read the echo results. She had no treatment prior to arrival all activities been aggravating factor. Hospital Course Hospital Course: This is 63 years old female patient with past medical history of congestive heart failure, hypertension, COPD and current everyday smoker presented with chief complaint of shortness of breath. Patient patient found to have hypertensive emergency with blood pressure of 260/120. And her BNP is 5500. Patient has been managed with Lasix, supplemental oxygen and bronchodilators. Patient also found to have acute kidney injury with creatinine of 1.94. Her kidney function is worsening with the aggressive diuresis. Her latest creatinine is 2.54. This morning patient seen while sitting up in bed she is awake alert oriented she is not in any distress but she complains of sore throats. For which she was given Magic mouth wash. 04/06/2019: Patient seen while she is sitting up in bed. She is awake alert oriented. She is not in pain or distress. Her kidney function is improving evidenced by her creatinine yesterday was 2.542 date is 2.34. I increase the flow of her normal saline from 75 to 125 mL/h and repeat her BMP in a if there is further improvement in her renal function patient's potential discharge tomorrow. 04/07/2019: Patient seen and examined while she is sitting up in bed. She just finished her breathing treatment. She reports feeling much better. Her kidney function is improving steadily. Her vital signs are within normal limits and patient stable enough to be discharged today. I will send her home with lisinopril, carvedilol and simvastatin. She needs follow-up with her primary care physician in 1 week. Physical Exam Vital Signs: Temp Pulse Resp BP Pulse Ox 98.1 F 58 L 20 186/86 H 93 04/07/19 07:36 04/07/19 07:36 04/07/19 07:36 04/07/19 07:36 04/07/19 07:36 Intake & Output 04/06/19 04/07/19 04/08/19 06:59 06:59 06:59 Intake Total 1389 2693 Output Total 3800 5200 65 Balance -2411 -2507 -65 Weight 83.2 kg 85.6 kg General appearance: PRESENT: no acute distress Head exam: PRESENT: atraumatic Teeth exam: PRESENT: poor dentation Neck exam: ABSENT: carotid bruit, JVD, lymphadenopathy, thyromegaly Respiratory exam: PRESENT: clear to auscultation kyung. ABSENT: rales, rhonchi, wheezes Cardiovascular exam: PRESENT: RRR. ABSENT: diastolic murmur, rubs, systolic murmur GI/Abdominal exam: PRESENT: normal bowel sounds, soft. ABSENT: distended, guard ing, mass, organolmegaly, rebound, tenderness Neurological exam: PRESENT: awake, oriented to person, oriented to place, oriented to time, oriented to situation Results Laboratory Results: 04/05/19 05:45 04/07/19 06:01 04/07/19 06:01 Sodium 135.6 L Potassium 3.8 Chloride 97 L Carbon Dioxide 31 H Anion Gap 8 BUN 44 H Creatinine 2.25 H Est GFR ( Amer) 26 L Est GFR (Non-Af Amer) 22 L Glucose 105 Calcium 8.2 L 03/31/19 03/31/19 03/31/19 15:27 15:27 20:58 CK-MB (CK-2) 4.18 Troponin I 0.022 0.020 NT-Pro-B Natriuret Pep 5150 H 04/01/19 04/01/19 03:19 03:19 CK-MB (CK-2) Troponin I 0.012 NT-Pro-B Natriuret Pep 5640 H Impressions: Chest X-Ray 03/31/19 15:14 IMPRESSION: Increased interstitial prominence and bilateral pleural effusions. Small areas of basilar subsegmental atelectasis. Abdomen/Pelvis CT 04/03/19 18:15 IMPRESSION: Mildly dilated proximal small bowel loops with mild mucosal thickening could be secondary to an infectious versus inflammatory process. Recommend follow-up. Qualifiers - * PATIENT BEING DISCHARGED WITH ANY OF THE FOLLOWING DIAGNOSIS: No Acute Heart Failure - Is this a Heart Failure Patient?: Yes Documentation of LVEF assessment?: Yes LVEF < 40%?: No- if no continue to question #3 3. Anticoagulant therapy for permanect/persistent/paraoxysmal Afib or Aflutter: N/A Follow-up Appointment scheduled within 7 days?: Yes
[2019-04-07 08:42] VITALS: BP 162/70
[2019-04-07] MEDS: CALCIUM CARBONATE 500 MG TAB.CHEW PO SCH (08:44)
[2019-04-07] MEDS: PREDNISONE 20 MG TABLET PO SCH (08:59)
[2019-04-07] MEDS: SPIRONOLACTONE 25 MG TABLET PO SCH (08:59)
[2019-04-07] MEDS: DOXAZOSIN MESYLATE 4 MG TABLET PO SCH (08:59)
[2019-04-07] MEDS: CEFUROXIME 500 MG TABLET PO SCH (08:59)
[2019-04-07] MEDS: METOPROLOL SUCCINATE 50 MG TAB.SR.24H PO SCH (09:00)
[2019-04-07] MEDS: LISINOPRIL 10 MG TABLET PO SCH (09:00)
[2019-04-07] MEDS: FUROSEMIDE 40 MG TABLET PO SCH (09:00)
[2019-04-07] MEDS: LEVOFLOXACIN 750 MG TABLET PO SCH (09:00)
[2019-04-07] MEDS: NYSTATIN/DEXAMETH/DIPHEN SUSP 120 ML PO SCH (09:07)
[2019-04-08 19:08] LABS: METANEPHRINE URINE 23 ug/L (Undefined); METANEPHRINE URINE 24HR 101 ug/24 hr (45-290); NORMETANEPHRINE URINE 79 ug/L (Undefined); NORMETANEPHRINE URINE 24HR 348 ug/24 hr (82-500)
[2019-04-09 16:24] LABS: ALDOSTERONE URINE <2.50 ug/L (Not Estab.); ALDOSTERONE URINE 24HR <11.00 ug/24 hr (0.00-19.00)
== END 2019-04-07 10:45 | disposition home or self-care (01) | DRG 304 ==
LOC: ER 14:42 → EH 17:49 → ICU 19:52 → 3W 04-02 17:14
PROVIDERS: ADMIT Internal Medicine; ATTEND Internal Medicine
DX: I16.1 Hypertensive emergency (principal); I50.23 Acute on chronic systolic (congestive) heart failure; N17.9 Acute kidney failure, unspecified; J44.1 Chronic obstructive pulmonary disease with (acute) exacerbation; I13.0 Hypertensive heart and chronic kidney disease with heart failure and stage 1 through stage 4 chronic kidney disease, or unspecified chronic kidney disease; N18.9 Chronic kidney disease, unspecified; F17.210 Nicotine dependence, cigarettes, uncomplicated
CPT/HCPCS: 36415; 71046; 74176; 80048; 80053; 80061; 82088; 82553; 82570; 82962; 83036; 83690; 83735; 83880; 84156; 84439; 84443; 84484; 85025; 85027; 87040; 93005; 93010; 94640; 96365; 99285; J0360; J1644; J1815; J1940; J1956; J2405; J2920; J2930; J3360; J3475; J3490; J7030; J7512; J7614; J7620

== ENCOUNTER → 2019-07-18 | Outpatient (CLI) | payer MEDICAID, OTHER ==
[2019-07-18 12:45] LABS: ABSOLUTE BASOPHILS # (AUTO) 0.1 10^3/uL (0.0-0.2); ABSOLUTE EOSINOPHILS # (AUTO) 0.2 10^3/uL (0.0-0.6); ABSOLUTE LYMPHOCYTES (AUTO) 1.2 10^3/uL (0.5-4.7); ABSOLUTE MONOCYTES (AUTO) 0.6 10^3/uL (0.1-1.4); ABSOLUTE NEUT (AUTO) 8.1 10^3/uL (1.7-8.2); BASOPHILS % (AUTO) 0.6 % (0-2); EOSINOPHILS % (AUTO) 1.6 % (0-6); HEMATOCRIT 40.9 % (36.0-47.0); HEMOGLOBIN 13.6 g/dL (12.0-15.5); MEAN CORPUSCULAR HEMOGLOBIN 29.2 pg (27.0-33.4); MEAN CORPUSCULAR HGB CONC 33.3 g/dL (32.0-36.0); MEAN CORPUSCULAR VOLUME 88 fl (80-97); MONOCYTES % (AUTO) 5.5 % (3-13); PLATELET COUNT 284 10^3/uL (150-450); RED BLOOD COUNT 4.66 10^6/uL (3.72-5.28); RED CELL DISTRIBUTION WIDTH 15.9 % (11.5-14.0); SEGMENTED NEUTROPHILS % (AUTO) 80.3 % (42-78); TOTAL CELLS COUNTED % (AUTO) 100 %; WHITE BLOOD COUNT 10.1 10^3/uL (4.0-10.5)
[2019-07-18 12:46] LABS: APPEARANCE,URINE SLIGHTLY-CLOUDY; BILIRUBIN,URINE NEGATIVE (NEGATIVE); COLOR,URINE YELLOW; GLUCOSE, URINE NEGATIVE (NEGATIVE); KETONES,URINE NEGATIVE (NEGATIVE); LEUKOCYTE ESTERASE,URINE MODERATE (NEGATIVE); NITRITE,URINE NEGATIVE (NEGATIVE); PROTEIN,URINE 30 mg/dL (NEGATIVE); URINE SPECIFIC GRAVITY 1.014; UROBILINOGEN,URINE NEGATIVE mg/dL (<2.0)
[2019-07-18 13:07] LABS: ALBUMIN 4.1 g/dL (3.5-5.0); ALKALINE PHOSPHATASE 82 U/L (38-126); ANION GAP 10 (5-19); ASPARTATE AMINO TRANSFERASE 20 U/L (14-36); BILIRUBIN,DIRECT 0.1 mg/dL (0.0-0.4); BILIRUBIN,TOTAL 0.5 mg/dL (0.2-1.3); BLOOD UREA NITROGEN 36 mg/dL (7-20); CALCIUM 9.4 mg/dL (8.4-10.2); CARBON DIOXIDE 33 mmol/L (22-30); CHLORIDE 100 mmol/L (98-107); GLUCOSE 119 mg/dL (75-110); POTASSIUM 4.5 mmol/L (3.6-5.0); TOTAL PROTEIN 7.4 g/dL (6.3-8.2)
[2019-07-18 14:09] LABS: UR PRO/CREAT RATIO RESULT 0.2 mg/mg (0.0-0.2); URINE CREATININE 156.8 mg/dL (15-278); URINE PROTEIN 34.2 mg/dL (<12)
== END ==
LOC: OD 11:59
PROVIDERS: ATTEND Internal Medicine Nephrology
DX: I12.9 Hypertensive chronic kidney disease with stage 1 through stage 4 chronic kidney disease, or unspecified chronic kidney disease (principal); N18.4 Chronic kidney disease, stage 4 (severe); E26.9 Hyperaldosteronism, unspecified
CPT/HCPCS: 36415; 80053; 81001; 82570; 83735; 83970; 84100; 84156; 85025

== ENCOUNTER → 2019-08-31 | Outpatient (CLI) | payer MEDICAID, OTHER ==
[2019-08-31 11:25] LABS: ABSOLUTE EOSINOPHILS # (AUTO) 0.1 10^3/uL (0.0-0.6); ABSOLUTE LYMPHOCYTES (AUTO) 1.1 10^3/uL (0.5-4.7); ABSOLUTE MONOCYTES (AUTO) 0.5 10^3/uL (0.1-1.4); ABSOLUTE NEUT (AUTO) 6.8 10^3/uL (1.7-8.2); BASOPHILS % (AUTO) 0.5 % (0-2); EOSINOPHILS % (AUTO) 1.4 % (0-6); HEMATOCRIT 39.7 % (36.0-47.0); HEMOGLOBIN 13.2 g/dL (12.0-15.5); LYMPHOCYTES % (AUTO) 13.2 % (13-45); MEAN CORPUSCULAR HEMOGLOBIN 29.3 pg (27.0-33.4); MEAN CORPUSCULAR HGB CONC 33.3 g/dL (32.0-36.0); MEAN CORPUSCULAR VOLUME 88 fl (80-97); MONOCYTES % (AUTO) 5.8 % (3-13); PLATELET COUNT 262 10^3/uL (150-450); RED CELL DISTRIBUTION WIDTH 14.5 % (11.5-14.0); SEGMENTED NEUTROPHILS % (AUTO) 79.1 % (42-78); TOTAL CELLS COUNTED % (AUTO) 100 %; WHITE BLOOD COUNT 8.5 10^3/uL (4.0-10.5)
[2019-08-31 11:36] LABS: APPEARANCE,URINE SLIGHTLY-CLOUDY; BILIRUBIN,URINE NEGATIVE (NEGATIVE); COLOR,URINE YELLOW; GLUCOSE, URINE NEGATIVE (NEGATIVE); KETONES,URINE NEGATIVE (NEGATIVE); LEUKOCYTE ESTERASE,URINE NEGATIVE (NEGATIVE); NITRITE,URINE NEGATIVE (NEGATIVE); PROTEIN,URINE 30 mg/dL (NEGATIVE); URINE SPECIFIC GRAVITY 1.013; UROBILINOGEN,URINE NEGATIVE mg/dL (<2.0)
[2019-08-31 11:44] LABS: ALBUMIN 3.9 g/dL (3.5-5.0); ALKALINE PHOSPHATASE 77 U/L (38-126); ANION GAP 10 (5-19); ASPARTATE AMINO TRANSFERASE 23 U/L (14-36); BILIRUBIN,DIRECT 0.3 mg/dL (0.0-0.4); BILIRUBIN,TOTAL 0.6 mg/dL (0.2-1.3); BLOOD UREA NITROGEN 29 mg/dL (7-20); CALCIUM 9.1 mg/dL (8.4-10.2); CARBON DIOXIDE 26 mmol/L (22-30); CHLORIDE 105 mmol/L (98-107); GLUCOSE 131 mg/dL (75-110); PHOSPHORUS 4.3 mg/dL (2.5-4.5); POTASSIUM 4.7 mmol/L (3.6-5.0); TOTAL PROTEIN 7.4 g/dL (6.3-8.2)
== END ==
LOC: OD 10:47
PROVIDERS: ATTEND Internal Medicine Nephrology
DX: I13.0 Hypertensive heart and chronic kidney disease with heart failure and stage 1 through stage 4 chronic kidney disease, or unspecified chronic kidney disease (principal); I50.9 Heart failure, unspecified; N18.4 Chronic kidney disease, stage 4 (severe)
CPT/HCPCS: 36415; 80053; 81001; 83970; 84100; 85025